=== PATIENT | female | born 1995 | race Caucasian/White ===

== ENCOUNTER 2022-10-29 12:44 | Outpatient (CLI) | payer BC, SELFPAY ==
--- NOTE | 2022-10-29 13:00 | CRLHL7_ITS ---
For Patients: As a result of the Century Cures Act, medical imaging exams and procedure reports are released immediately into your electronic medical record. You may view this report before your referring provider. If you have questions, please contact your health care provider. INDICATION: Evaluate size and dates TECHNIQUE: Ultrasound OB pelvis transvaginal. Real time dixon scale imaging of the pelvis was performed. COMPARISON: None FINDINGS: Sonographic imaging demonstrates a single living intrauterine gestation. The embryo demonstrates a regular cardiac rate measuring the 3 beats per minute. The embryo`s crown rump length measurement of 3.08 cm corresponds to a gestational age of 10 weeks 0 days with a sonographic due date of 05/27/2023 . There is a normal appearing yolk sac. There are no gross abnormalities noted within the embryo at this early state of development. The placenta has not yet developed. The gestational sac has a normal appearance. 3.1 centimeter x 0.5 centimeter x 0.4 centimeter left-sided subchorionic hemorrhage. The amount of fluid within the sac appears appropriate for gestational age. The cervix is closed. The myometrium appears normal. The ovaries are of normal size. There are no suspicious fluid collections noted in the cul-de-sac. IMPRESSION: Viable intrauterine . Gestational age calculated at 10 weeks 0 days with a sonographic due date of 05/27/2023. Measurements consistent with dates. 3.1 centimeter x 0.5 centimeter x 0.4 centimeter left-sided subchorionic hemorrhage. Dictated by Tong Crenshaw MD @ 10/29/2022 5:22:13 PM (Electronically Signed)
== END 2022-10-29 12:45 | disposition home or self-care (01) ==
LOC: US 12:47
PROVIDERS: Visit Provider Advanced Practice Midwife
DX: Z34.91 Encounter for supervision of normal pregnancy, unspecified, first trimester (principal); O20.9 Hemorrhage in early pregnancy, unspecified; Z3A.10 10 weeks gestation of pregnancy
CPT/HCPCS: 76817

== ENCOUNTER 2023-01-08 16:39 | Outpatient (CLI) | payer BC, SELFPAY ==
--- NOTE | 2023-01-08 17:00 | CRLHL7_ITS ---
For Patients: As a result of the Century Cures Act, medical imaging exams and procedure reports are released immediately into your electronic medical record. You may view this report before your referring provider. If you have questions, please contact your health care provider. INDICATION: Evaluate anatomy. COMPARISON: none TECHNIQUE: Real time dixon scale imaging of the fetus was performed as well as color Doppler analysis of the umbilical vessels. FINDINGS: Sonographic imaging demonstrates a single living intrauterine gestation. Fetus demonstrates a regular cardiac rate of 138 beats per minute. Fetus has a variable position. The placenta lies central without evidence of placenta previa. The edge of the placenta is located 2.6 cm from the internal cervical os. Amniotic fluid volume appears normal. Single deepest vertical pocket: 5.0 cm. The cervix is closed and measures 5.3 cm in length. The composite ultrasound gestational age is calculated at 20 weeks 3 days with an estimated sonographic due date of 05/25/2023. The estimated weight is 358 grams which lies at the 58th %. The following biometric measurements were obtained: Biparietal diameter: 4.6 cm/19 weeks 6 days 31st% Head circumference: 17.5 cm/20 weeks 0 days 29th% Abdominal circumference: 16.0 cm/21 weeks 1 day 72nd% Femur length: 3.2 cm/20 weeks 0 days 30th% The HC/AC ratio measures: 1.09 range (1.07-1.25) On anatomic survey, there is a normal appearance of the cerebral ventricles, cavum septi pellucidi, cisterna magna and cerebellum. The nose, lips, and facial profile appear normal. The cervical, thoracic and lumbar spine are well visualized and appear normal. There is a normal four-chamber heart view and the left and right ventricular outflow tracts appear normal. The diaphragm and stomach appear normal. The kidneys and bladder also appear normal. There is a normal three-vessel cord and cord insertion site. The four extremities appear normal. IMPRESSION: Normal OB ultrasound exam with concordance of clinical and sonographic dating. No intrinsic abnormalities noted on anatomic survey. Dictated by Tong Harris MD @ 01/09/2023 12:42:14 PM (Electronically Signed)
== END 2023-01-08 16:40 | disposition home or self-care (01) ==
PROVIDERS: Visit Provider Advanced Practice Midwife
DX: Z34.92 Encounter for supervision of normal pregnancy, unspecified, second trimester (principal); Z3A.20 20 weeks gestation of pregnancy
CPT/HCPCS: 76805; 76817

== ENCOUNTER 2023-01-25 16:06 | Outpatient (CLI) | payer BC, SELFPAY ==
[2023-01-27 09:58] LABS: Rapid Plasma Reagin (RPR) Non Reactive (Non Reactive)
== END 2023-01-25 16:07 | disposition home or self-care (01) ==
LOC: NFLDREF 16:07
PROVIDERS: Visit Provider Physician Assistant
DX: Z34.90 Encounter for supervision of normal pregnancy, unspecified, unspecified trimester (principal)
CPT/HCPCS: 86592

== ENCOUNTER 2023-02-20 13:27 | Outpatient (CLI) | payer BC, SELFPAY | END 2023-02-20 13:28 | disposition home or self-care (01) | LOC: NFLDREF 13:28 | PROVIDERS: Visit Provider Obstetrics & Gynecology | DX: O26.893 Other specified pregnancy related conditions, third trimester (principal); Z3A.28 28 weeks gestation of pregnancy | CPT/HCPCS: 87086 ==

== ENCOUNTER 2023-03-08 09:15 | Outpatient (CLI) | payer BC, SELFPAY | END 2023-03-08 09:16 | disposition home or self-care (01) | LOC: NFLDREF 03-10 05:04 | PROVIDERS: Visit Provider Obstetrics & Gynecology | DX: Z34.92 Encounter for supervision of normal pregnancy, unspecified, second trimester (principal); Z3A.26 26 weeks gestation of pregnancy | CPT/HCPCS: 86592 ==

== ENCOUNTER 2023-03-12 07:59 | Outpatient (CLI) | payer BC, SELFPAY | END 2023-03-12 08:00 | disposition home or self-care (01) | LOC: NFLDREF 21:16 | PROVIDERS: Visit Provider Obstetrics & Gynecology | DX: O24.419 Gestational diabetes mellitus in pregnancy, unspecified control (principal); Z3A.29 29 weeks gestation of pregnancy | CPT/HCPCS: 82951; 82952 ==

== ENCOUNTER 2023-04-02 12:01 | Outpatient (CLI) | payer BC, SELFPAY ==
--- NOTE | 2023-04-02 12:15 | CRLHL7_ITS ---
For Patients: As a result of the Century Cures Act, medical imaging exams and procedure reports are released immediately into your electronic medical record. You may view this report before your referring provider. If you have questions, please contact your health care provider. INDICATION: Third trimester scan, evaluate growth. Gestational diabetes. COMPARISON: 01/08/2023 TECHNIQUE: Real time dixon scale imaging of the fetus was performed. FINDINGS: Sonographic imaging demonstrates a single living intrauterine gestation. Fetus demonstrates a regular cardiac rate of 149 beats per minute. Fetus has a vertex position. The placenta lies posteriorly. Amniotic fluid volume appears normal and there is a single deepest vertical pocket: 5.6 cm. The estimated weight is 2152gm which lies at the 71st %. On the prior OB ultrasound exam dated 01/08/2023 the estimated weight was at the 58th%. BPD 76th percentile. HC 61st percentile. AC 87th percentile. FL 29th percentile. The HC/AC ratio measures 1.03 range (0.96-1.11). IMPRESSION: Sonographic gestational age 33 weeks 2 days and sonographic due date 05/19/2023. Sonographic age 1 week ahead of the clinical age. Estimated weight 71st percentile. Abdominal circumference 87th percentile. Dictated by Tong Harris MD @ 04/02/2023 12:39:19 PM (Electronically Signed)
== END 2023-04-02 12:02 | disposition home or self-care (01) ==
LOC: US 12:02
PROVIDERS: Visit Provider Obstetrics & Gynecology
DX: O24.419 Gestational diabetes mellitus in pregnancy, unspecified control (principal); Z3A.33 33 weeks gestation of pregnancy
CPT/HCPCS: 76816

== ENCOUNTER 2023-05-20 13:52 | Outpatient (CLI) | payer BC, SELFPAY ==
[2023-05-20 14:10] VITALS: BP 124/69; PULSE 92; PULSE 93; O2SAT 97
[2023-05-20] MEDS: ONDANSETRON ODT 4 MG TAB PO (15:22)
[2023-05-20 15:57] LABS: Appearance Urine Clear (Clear); Bilirubin Urine Negative (Negative); Blood Urine Negative (Negative); Color Urine Yellow (Yellow); Glucose Urine Negative (Negative); Ketones Urine Negative (Negative); Leukocyte Esterase Urine Negative (Negative); Nitrite Urine Negative (Negative); Protein Urine Negative (Negative); Urobilinogen Urine 0.2 (0.2-1.0)
[2023-05-20 15:58] LABS: Yeast Yeast Seen (None Seen)
[2023-05-20 15:59] LABS: Clue Cells No Clue Cells Seen (None Seen); Trichomonas No Trichomonas Seen (None Seen)
[2023-05-20] MEDS: ACETAMINOPHEN 500 MG TABLET 1000 MG PO (16:00)
--- NOTE | 2023-05-20 17:31 | PC.OBNST ---
NST Note NST Note Start: 05/20/23 14:07 Freq: ONCE Status: Active Protocol: Document 05/20/23 17:25 SD (Rec: 05/20/23 17:31 SD [id number]) NST Note 2 Para (# of births) 1 EDC 05/26/23 Gestational Age In Weeks & Days 39 Weeks & 1 Days High Risk Factors Diabetes - Gestational Diet Controlled Patient Presented with Complaint(s) of Contractions/cramping,Nausea and vomiting,Headache Other Complaints Contractions every 7 to 12 minutes, Persistent headache started 0600 05/19. Current c/o nausea, Nausea and vomiting yesterday, and perineal itching. Reactive Yes Appropriate for Gestational Age Yes TRISTA Sandoval RN Date 05/20/23 Reactive Yes Appropriate for Gestational Age Yes TRISTA Weston RN Date 05/20/23 OB NST charge Yes Complete NST Note via Write Note Yes The provider's electronic signature indicates the NST is reactive/appropriate for gestational age. *Note to provider: If an addendum is required, open the patient's chart and click on the note under the Nurse/Allied Health tab.
== END 2023-05-20 16:45 | disposition home or self-care (01) ==
LOC: OB OUT 13:53 → OB 13:53
PROVIDERS: Visit Provider Obstetrics & Gynecology
DX: O47.1 False labor at or after 37 completed weeks of gestation (principal); Z3A.39 39 weeks gestation of pregnancy
CPT/HCPCS: 59025; 81003; 87210; 99213; A9270

== ENCOUNTER 2023-07-02 07:47 | Outpatient (CLI) | payer BC, SELFPAY | END 2023-07-02 07:48 | disposition home or self-care (01) | LOC: NFLDREF 07-04 10:27 | PROVIDERS: Visit Provider Obstetrics & Gynecology | DX: Z39.2 Encounter for routine postpartum follow-up (principal) | CPT/HCPCS: 82947; 82950 ==

== ENCOUNTER 2024-04-29 17:16 | Emergency (ER) | payer BC, SELFPAY ==
[2024-04-29] VITALS (16 sets, daily range): BP systolic 104–130; BP diastolic 66–107; PULSE 74–98; RESP 16; TEMP 36.6; O2SAT 95–100; BMI 25.9
--- NOTE | 2024-04-29 17:29 | ED.GENADULT ---
HPI - General Adult General Date Seen: 04/29/24 Chief complaint: Chest Pain Stated complaint: Chest pain, short of breath Time Seen by Provider: 04/29/24 17:21 History of Present Illness HPI narrative: 28-year-old female with a history of cholecystectomy ( about 1 year ago at [facility]), gestational diabetes, , possibly GERD ( had been diagnosed with reflux prior to being diagnosed with gallstones. She thinks that she probably never really had GERD in the 1st place), contraception with Nexplanon, presenting to the ER today with concern that she might be having a heart attack. Symptoms began this afternoon she recalls that about a year ago after she had her most recent child she was having lot of upper abdominal pain. Ultimately diagnosed with gallstones and had an inpatient cholecystectomy done at the hospital in [place]. Since then all of her previous upper abdominal symptoms have resolved and she is no longer out any medications for GERD. She think she probably never had GERD in the 1st place. She does recall that about 2 months ago she had an episode of right upper quadrant pain, reminiscent of her gallstone pain. she went to the urgent care for that and was told it was probably reflux. She received a prescription for omeprazole, but did not take it. She has not had any pains since then. She has been healthy and well lately. No recent cough or fever or shortness of breath. No recent vomiting or diarrhea. No other illnesses. She was eating her normal diet today. She had 3 eggs and some cereal today. She was with her family and children this afternoon, playing with them in the house but not doing any unusual or strenuous activity. At about 315 or 320 she began to have symptoms of lightheadedness, presyncope, pain in right upper quadrant, Shortness of breath. her Apple watch alarm saying that her heart rate was elevated. She does not recall any palpitations. She gets very lightheaded had to sit down. She then had an episode of diarrhea that was so off but nonbloody. Since then all of her nausea and lightheadedness have resolved but she still has some residual pain in her right upper quadrant that is radiating through to the back. No fevers. No jaundice. No swelling in her legs. She does use Nexplanon. She has a regular periods and they happen about twice a month. She does not have any specific concern for but says she could not know for sure because her periods are so irregular. Related Data Home Medications ?Medication ?Instructions ?Recorded ?Confirmed etonogestrel 68 mg subdermal 1 implant subdermal ONCE 01/14/24 04/29/24 implant (Nexplanon) Allergies Allergy/AdvReac Type Severity Reaction Status Date / Time No Known Drug Allergies Allergy Verified 04/29/24 20:42 [facility] Medical History (Updated 04/29/24 @ 21:06 by Jose Alejandro MD) Gestational diabetes ?O24.419 - Gestational diabetes mellitus in , unspecified control (ICD-10) History of gestational diabetes ?Z86.32 - Personal history of gestational diabetes (ICD-10) History of anemia ?Z86.2 - Personal history of diseases of the blood and blood-forming organs and certain disorders involving the immune mechanism (ICD-10) Surgical History (Updated 07/29/23 @ 10:11 by Asael Clemente MD) History of cholecystectomy ?Z90.49 - Acquired absence of other specified parts of digestive tract (ICD-10) History of delivery ?Z98.891 - History of uterine scar from previous surgery (ICD-10) Family History (Updated 10/29/22 @ 14:27 by Janette Krishnan CNM) Father Diabetes Social History What is your current living situation?: I presently have a place to live Problems where you live: no known problems In the past 12 months, utilities in danger of being shut off: no In past 12 months, lack of transportation kept you from medical appts, meetings, work, or getting things needed for daily living: no In the past 12 mos, have been you worried that your food would run out before you had money to buy more?: never true In the past 12 mos, the food you bought just didn't last and you didn't have money to buy more?: never true Smoking Status: Never smoker Do you use any of these nicotine containing products: None Second hand tobacco smoke exposure: No How often do you have a drink containing alcohol: never AUDIT-C Alcohol total score: 0 Non-prescribed substance use: denies use How often does anyone, including family, friends and others, physically hurt you: unable to answer How often does anyone, including family, friends and others, insult or talk down to you: unable to answer How often does anyone, including family, friends and others, threaten you with harm: unable to answer How often does anyone, including family, friends and others, scream or curse at you: unable to answer Little interest or pleasure in doing things: not at all Feeling down, depressed, or hopeless: not at all service: No Exam Narrative: Exam Narrative: Constitutional: Appears well-developed and well-nourished. Alert. Conversant. Non toxic. HENT: Head: Atraumatic. Nose: Nose normal. Mouth/Throat: Oral mucosa is clear and moist. no trismus. Pharynx normal. Tonsils symmetric. No tonsillar enlargement, erythema, or exudate. Eyes: Conjunctivae normal. EOM normal. Pupils equal, round, and reactive to light. No scleral icterus. Neck: Normal range of motion. Neck supple. No tracheal deviation present. Cardiovascular: Normal rate, regular rhythm. No gallop. No friction rub. No murmur heard. Symmetric radial And DP artery pulses Pulmonary/Chest: Effort normal. No stridor. No respiratory distress. No wheezes. No rales. No rhonchi . No tenderness. Abdominal: Soft. Bowel sounds normal. No distension. No mass. mild right upper quad tenderness. no hepatosplenomegaly. No Barker sign.No rebound. No guarding. Endorses pain in her central upper back and right flank but is not tender there. Musculoskeletal: RUE: Normal range of motion. No tenderness. No deformity LUE: Normal range of motion. No tenderness. No deformity RLE: Normal range of motion. No edema. No tenderness. No deformity LLE: Normal range of motion. No edema. No tenderness. No deformity Neurological: Alert and oriented to person, place, and time. Normal strength. CN II-VII intact. No sensory deficit. GCS eye subscore is 4. GCS verbal subscore is 5. GCS motor subscore is 6. Normal coordination Skin: Skin is warm and dry. No rash noted. No pallor. Normal capillary refill. Psychiatric: Normal mood. Normal affect. Const: Vital Signs, click to edit/add: Vital Signs - 24 hr 04/29/24 17:30 04/29/24 17:54 04/29/24 18:00 Temperature 98 F Pulse Rate 80 85 Pulse Rate [Pulse Oximeter] 92 Respiratory Rate 16 Blood Pressure Blood Pressure [Ri ght Upper Arm] 117/70 Pulse Oximetry 100 96 98 Oxygen Delivery Me thod Room Air 04/29/24 18:01 04/29/24 18:30 04/29/24 18:32 Temperature Pulse Rate 98 85 84 Pulse Rate [Pulse Oximeter] Respiratory Rate Blood Pressure 104/82 111/66 Blood Pressure [Ri ght Upper Arm] Pulse Oximetry 99 96 97 Oxygen Delivery Me thod Course Vital Signs Vital signs: Initial Vital Signs Temperature 98 F 04/29/24 17:30 Temperature Source Temporal Artery Scan 04/29/24 17:30 Pulse Rate 92 04/29/24 17:30 Pulse Rhythm Regular 04/29/24 17:30 Pulse Strength 3+ Normal 04/29/24 17:30 Respiratory Rate 16 04/29/24 17:30 Blood Pressure 117/70 04/29/24 17:30 Blood Pressure Mean 85 04/29/24 17:30 Blood Pressure Position Semi-Fowlers 04/29/24 17:30 Pulse Oximetry 100 04/29/24 17:30 Oxygen Delivery Method Room Air 04/29/24 17:30 Vital Signs Temperature 98 F 04/29/24 17:30 Pulse Rate 92 04/29/24 17:30 Respiratory Rate 16 04/29/24 17:30 Blood Pressure 117/70 04/29/24 17:30 Pulse Oximetry 100 04/29/24 17:30 Oxygen Delivery Method Room Air 04/29/24 17:30 Temperature 98 F 04/29/24 17:30 Pulse Rate 84 04/29/24 18:32 Respiratory Rate 16 04/29/24 17:30 Blood Pressure 111/66 04/29/24 18:32 Pulse Oximetry 97 04/29/24 18:32 Oxygen Delivery Method Room Air 04/29/24 17:30 Medications Administered Medications: Discontinued Medications Generic Name Dose Route Start Last Admin Trade Name Freq PRN Reason Stop Dose Admin Aspirin 162 mg 04/29/24 17:53 04/29/24 18:05 Aspirin 81 Mg Tab.Chew PO 04/29/24 17:54 162 mg ONCE ONE Administration Medical Decision Making MDM Narrative Medical decision making narrative: This is a pleasant 28-year-old female with a history of previous laparoscopic cholecystectomy (done about a year ago at [facility]) presenting to the ER today with an episode of pain involving the right upper quadrant of her abdomen, associated with dizziness, presyncope, tachycardia, and shortness of breath. She also had 1 small loose bowel movement during this episode. No other diarrhea or vomiting. No fever or other infection symptoms. Differential is broad. With the shortness of breath and racing heart, consider possible cardiopulmonary cause. EKG here in the ER shows sinus rhythm and no arrhythmogenic abnormality. She has sinus rhythm. No ongoing tachycardia. She does have a smart watch which said her heart rate briefly went up to 158 beats per minute, but did not record a rhythm strip so I do not know she had an arrhythmia such as SVT, AFib with RVR, or if this was sinus tach driven by pain or adrenaline. Would recommend outpatient follow-up with Holter monitor as needed or return to the ER with recurrent palpitations. Consider possible PE causing shortness of breath and elevated heart rate. No hypoxia. No known risk factors for PE other than Nexplanon. No signs of DVT. No pleuritic chest pain, just right upper quadrant abdominal pain. Overall would be low risk for PE but not 0 risk. We did obtain D-dimer which is very low. At this point with normal D-dimer, low overall risk, the risk of radiation from CT PA would outweigh the benefit. Differential for right upper quadrant pain is broad. Consider possible hepatitis, pancreatitis. Labs are normal. Consider possible peptic ulcer disease or duodenal ulcer. Patient has no symptoms of recent GI bleeding. Stable vital signs. Normal hemoglobin. Consider possible retained common bile duct stone, versus other complication of cholecystectomy. CT scan abdomen pelvis shows no acute surgical or medical pathology. Bile ducts looked normal. Hepatic steatosis which would not be a cause for her pain. No evidence for pancreatitis. No signs of perforating ulcer. No evidence for obstruction. Consider possible early appendicitis, but labs are reassuring and CT shows No sign of appendicitis. Consider possible kidney stone. Urinalysis shows no hematuria. test negative. No lower abdominal pain to suggest gynecologic pathology. Exam shows no evidence for abdominal wall cellulitis, abdominal abscess, shingles. No known trauma. Passed p.o. challenge here in the ER. Pain resolved. She feels comfortable discharging home. Recommend close outpatient follow-up. Questions answered. Plan of care reviewed Lab Data Labs: Lab Results 04/29/24 04/29/24 Range/Units 17:29 18:07 WBC 11.44 H (4.50-11.00) K/uL RBC 4.57 (4.00-5.20) m/uL Hgb 13.1 (12.0-16.0) gm/dL Hct 38.6 (33.0-51.0) % MCV 85 (80-100) fL MCH 29 (26-34) pg MCHC 34 (32-36) gm/dL RDW Coeff of Joon 12.1 (11.5-15.5) % Plt Count 418 (140-440) K/uL Neut % (Auto) 48.1 (42.0-72.0) % Lymph % (Auto) 42.0 (20-44) % [place] % (Auto) 5.8 (0.0-11.0) % Eos % (Auto) 3.2 (0.0-7.0) % Baso % (Auto) 0.7 (0.0-3.0) % Neut # (Auto) 5.50 (1.7-7.0) K/uL Lymph # (Auto) 4.80 H (0.90-2.90) K/uL [place] # (Auto) 0.70 (0.00-0.90) K/UL Eos # (Auto) 0.40 (0.00-0.50) K/uL Baso # (Auto) 0.10 (0.00-0.30) K/uL Abs Immat Gran (auto) 0.00 (0.00-0.30) K/uL Imm/Tot Granulo (auto) 0.2 % D-Dimer Quant (PE/DVT) 0.07 (0.00-0.50) ug/ml Sodium 141 (135-149) mmol/L Potassium 3.8 (3.6-5.1) mmol/L Chloride 108 (96-114) mmol/L Carbon Dioxide 26 (20-32) mmol/L Anion Gap 7 (7-15) mEq/L BUN 13 (5-24) mg/dL Creatinine 0.6 (0.5-1.5) mg/dL Estimated Creat Clear 107.22 Estimated GFR 127 ml/min Glucose 97 (60-115) mg/dL Calcium 9.6 (8.4-10.6) mg/dL Total Bilirubin 0.5 (0.1-1.5) mg/dL AST 29 (12-35) U/L ALT 31 (4-35) U/L Alkaline Phosphatase 89 (40-150) U/L Troponin I < 0.01 L (0.01-0.04) ng/mL Total Protein 8.8 H (6.0-8.3) g/dL Albumin 5.1 H (3.3-5.0) g/dL Lipase 175 (23-300) U/L Urine Color Yellow (Yellow) Urine Appearance Clear (Clear) Urine pH 6.5 (5.0-8.5) Ur Specific [place] 1.010 (1.000-1.030) Urine Protein Negative (Negative) Urine Glucose (UA) Negative (Negative) Urine Ketones Negative (Negative) Urine Blood Negative (Negative) Urine Nitrite Negative (Negative) Urine Bilirubin Negative (Negative) Urine Urobilinogen 0.2 (0.2-1.0) Ur Leukocyte Esterase Negative (Negative) Urine RBC 0-2 (0-2) Urine WBC 0-2 (0-5) Ur Squamous Epith Cells Few (None-Few) Urine Bacteria None (None) Urine HCG, Qual Negative (Negative) Imaging Data CT scan - abdomen: Attestation: I have reviewed the pertinent imaging results. Radiologist's impression: FINDINGS: Lung bases: Normal. Liver: Mild diffuse hepatic steatosis. The liver is borderline enlarged and measures 19 centimeters in length. The liver surface is not nodular or cirrhotic. No focal masses. The portal veins and hepatic veins are patent. Gallbladder and bile ducts: Cholecystectomy. No bile duct dilation. Pancreas: Normal. Spleen: Normal. Adrenal glands: Normal. Kidneys: Normal parenchyma. No cyst or solid mass. No calculi. No urinary tract dilation. Urinary bladder: Normal. Pelvis: Physiologic appearance of the uterus and both ovaries. Vessels: Normal. Bowel: No dilated or inflamed bowel. The appendix is normal.. Moderate stool burden. Lymph nodes: No adenopathy. Peritoneum: No ascites. Abdominal wall: Tiny fat containing umbilical hernia. Bones: No fractures. No focal worrisome bone lesions. IMPRESSION: Mild diffuse hepatic steatosis and borderline hepatomegaly. ECG Data Attestation: I personally reviewed and interpreted this ECG as follows: Interpretation: Normal sinus rhythm with sinus arrhythmia Rate: 82 NJ: 140. No delta wave QRS axis: normal axis. No pathologic Q-waves. ST segment/T wave: No ST segment elevation or depression. Nonspecific anterior flattening in the T-waves. QTc: 420 Discharge Plan Discharge Clinical Impression: Right upper quadrant abdominal pain, Heart palpitations Patient Disposition: Home, Self-Care Condition: Stable Instructions: Heart Palpitations (DC), Acute Abdominal Pain (DC) Additional Instructions: As we discussed, please come back to the ER right away if you have any worsening symptoms are recurring abdominal pain, racing heart, fainting spells, dizziness, fever, or any concerns. Please [facility] with the [facility] as soon as possible for a recheck. You can call [phone] to arrange a primary care checkup and ER follow-up visit. Call tomorrow morning to arrange a checkup for soon as possible. Prescriptions: No Action Nexplanon 68 mg implant 1 implant subdermal ONCE Patient Comments: Placed on 01/14/24 Rx Instructions: as a single dose Follow Up/Referrals: Asael Clemente MD [Staff Physician] - Stand Alone Forms: [employer] Info Instructions
--- OUTSIDE RECORDS SUMMARY | 2024-04-29 18:03 | XMS_ITS | Encounter Summary ---
Author Organization [facility] Address [address] [place] [address] Care Team Providers Care Continuous Pillowcase Cutter Name Role Phone None Reported, Pcp Primary Care Provider Unavail able Reason for Visit * Reason Comments Finger Injury Encounter Details Date Type Department Care Team (Late st Contact Info) Description 04/09/2024 5:32 PM CDT - 04/09/2024 6:38 PM CDT Emergency [facility] [address] [place] [id number] Fracture Index Finger Other Phalanx Closed Initial Right (Primary Dx) Discharge Disposition: Home or Self Care Social History Tobacco Use Types Packs/Day Years Used Date Smoking Tobacco: Never Smokeless Tobacco: Never Alcohol Use Standard Drinks/Week Comments Not Currently 0 (1 standard drink = 0.6 oz pure alcohol) Ocasioanlly/ Social ; none with positive test Humiliation, Afraid, Rape, and Kick questionnair e Answer Date Recorded Within the last year, have y ou been afraid of your partner or ex-partner? No 10/08/2022 Within the last year, have y ou been humiliated or emotionally abused in other ways by your partner or ex-partner? No Within the last year, have y ou been kicked, hit, slapped, or otherwise physically hurt by your partner or ex-partner? No 10/08/2022 Within the last year, have y ou been raped or forced to have any kind of sexual activity by your partner or ex-partner? No 10/08/2022 Social Connection and Isolat ion Panel [NHANES] Answer Date Recorded In a typical week, how many times do you talk on the phone with family, friends, or neighbors? More than three times a week 10/08/2022 How often do you get togethe r with friends or relatives? Twice a week 10/08/2022 How often do you attend chur or christianity services? 1 to 4 times per year 10/08/2022 Do you belong to any clubs o r organizations such as samaritan groups, unions, fraternal or athletic groups, or school groups? No 10/08/2022 How often do you attend meet ings of the clubs or organizations you belong to? Never 10/08/2022 Are you , , di vorced, , never , or living with a partner? 10/08/2022 AUDIT-C Answer Date Recorded Q1: How often do you have a drink containing alc ohol? 2-4 times a month 10/08/2022 Q2: How many drinks containi ng alcohol do you have on a typical day when you are drinking? 1 or 2 10/08/2022 Q3: How often do you have si x or more drinks on one occasion? Never 10/08/2022 Overall Financial Resource Strain (CARDIA) Answe r Date Recorded How hard is it for you to pa y for the very basics like food, housing, medical care, and heating? Not very hard 10/08/2022 PHQ-2 Answer Date Recorded PHQ-2 Score 0 09/26/2022 [facility] Occupat ional Health - Occupational Stress Questionnaire Answer Date Recorded Do you feel stress - tense, restless, nervous, or anxious, or unable to sleep at night because your mind is troubled all the time - these days? Not at all 10/08/2022 Exercise Vital Sign Answer Date Recorde d On average, how many days pe r week do you engage in moderate to strenuous exercise (like a brisk walk)? 2 days 10/08/2022 On average, how many minutes do you engage in exercise at this level? 10 min 10/08/2022 Hunger Vital Sign Answer Date Recorded Within the past 12 months, y ou worried that your food would run out before you got the money to buy more. Never true 10/08/20 22 Within the past 12 months, t he food you bought just didn't last and you didn't have money to get more. Never true 10/08/2022 PRAPARE - Transportation Answer Date Re corded In the past 12 months, has l ack of transportation kept you from medical appointments or from getting medications? No 06/2022 In the past 12 months, has l ack of transportation kept you from meetings, work, or from getting things needed for daily living? No 10/08/2022 Housing Stability Vital Sign Answer Ignacio e Recorded In the last 12 months, was t here a time when you were not able to pay the mortgage or rent on time? No 10/08/2022 In the last 12 months, how many places have you lived? 1 10/08/2022 In the last 12 months, was t here a time when you did not have a steady place to sleep or slept in a snf (including now)? No 10/08/2022 Depression Answer Date Recor ded PHQ-9 Total Score (max 27) 3 03/23 Nutrition Answer Date Recorded Nutrition: EVOO Fat Source No 10/08 On average, how many serving s of fruits and vegetables do you eat per day (serving size is equal to 1 cup or approximately the size of a tennis ball)? 2-3 10/08/2022 Dental Answer Date Recorded Dental: Regular Dentist Yes 02/02/20 Employment Answer Date Recorded Employment status Employed and actively working without restrictions 10/08/2022 Education Answer Date Recorded What is the highest level of school you have completed or the highest degree you have received? Bachelor's degree (e.g., BA, AB, BS) 10/08/2022 Sex and Gender Information Value Date Recorded Sex Assigned at Female 10/13/2018 9:32 AM MEDICAL SURGICAL TECH Gender Identity Female 10/13/2018 9:32 AM MEDICAL SURGICAL TECH Sexual Orientation Straight 10/13/2018 9: 32 AM MEDICAL SURGICAL TECH documented as of this encounter Medications at Time of Discharge Medication Sig Dispensed Refills Start Date End Date acetaminophen (TYLENOL) 500 mg tablet Take 500-1,000 mg by mouth. 02/12/2022 ibuprofen (ADVIL,MOTRIN) 600 mg tablet Take 600 mg by mouth. 02/12/2022 oxyCODONE-acetaminophen (PERCOCET) 5-325 mg per tablet Take 1-2 tablets by mouth every 6 (six) hours as needed for pain. 07/23/2023 polyethylene glycol (MIRALAX) 17 gram/dose oral powder Take 17 g by mouth daily as needed. eaoxsic-Nv-squg-FA (VINATE ONE) 60 mg iron-1 mg per tablet Take 1 tablet by mouth daily. xymvmmz-Mm-fgcl-FA 27 mg iron- 1 mg tabletIndications:Pregnan cy Examination Test With Positive Result (HCC) Take 1 tablet by mouth daily. 90 tablet 3 10/11/2022 sennosides-docusate sodium (SENOKOT-S) 8.6-50 mg per tablet Take 1 tablet by mouth 2 (two) times a day. 07/23/2023 sertraline (ZOLOFT) 50 mg tablet Take 50 mg by mouth. 02/12/2022 documented as of this encounter Plan of Treatment Not on file documented as of this encounter Goals Goal Patient Goal Type Associated Problems Recent Progress Patient-Stated? Author [facility] Care Plan for Obstetrics COVID-19 Care Plan [facility] Care Plan for Obstetrics COVID-19 No Sarahi Barraza M.D. documented as of this encounter Procedures Procedure Name Priority Date/Time Associated Diagnosis Comments DX FINGERS RIGHT 2+ VIEWS RAD - Semiurgent (Fast; most ED patients; some inpatients) 04/09/2024 6:03 PM CDT documented in this encounter Results * DX Fingers Right 2+ Views (04/09/2024 6:03 PM CDT) Anatomical Region Laterality Modality Upper Extremity, Fingers, Mu sculoskeletal RST LOS, Musculoskeletal ARZ LOS, Muskuloskeletal FLA LOS Right Digit al Radiography Impressions 04/09/2024 6:24 PM CDT Acute mildly displaced index finger distal phalanx tuft fracture. No dislocation. No significant degenerative changes. Bandage overlies the mid and distal index finger. Narrative 04/09/2024 6:24 PM CDT EXAM: DX FINGERS RIGHT 2+ VIEWS Procedure Note Aislinn Garza M.D. - 04/09/2024 EXAM: DX FINGERS RIGHT 2+ VIEWS IMPRESSION: Acute mildly displaced index finger distal phalanx tuft fracture. Nodislocation. No significant degenerative changes. Bandage overlies the midand distal index finger. Zenon Joshi M.D. [facility] DIAGNOSTIC I MAGING PROCEDURES documented in this encounter Visit Diagnoses Diagnosis Fracture Index Finger Other Phalanx Closed Initial Right- Primary documented in this encounter Additional Health Concerns Active Problems Noted Date Diagnosed Date [facility] Care Plan for Obstetrics COVID-19 Assessment Noted Time PHQ-9 Depression Total Score: 3 03/23/20 22 1:56 PM CDT documented as of this encounter Care Teams Continuous Pillowcase Cutter Relationship Specialty Start Date End Date None Reported, Pcp PCP - General Family Medicine 01/30/24 documented as of this encounter
--- OUTSIDE RECORDS SUMMARY | 2024-04-29 18:03 | XMS_ITS | Clinical Summary ---
Author Organization [facility] Address [address] [place] [address] Care Team Providers Care Rice Drier Name Role Phone None Reported, Pcp Primary Care Provider Unavail able Source Comments Patient records contain information from all sites at [facility]. For routine questions regarding patient records, call [phone] during business hours, M-F 8:00 AM - 5:00 PM Central Time. Record requests for emergency care only can be directed to [phone] at any time.[facility] Allergies Active Allergy Reactions Criticality Noted Date Comments Bee Venom Protein (Honey Bee) Itching Medium 09/27/2021 Cat Dander Other (see comments) High 09/27/2021 Hives, itchy House Dust Other (see comments) 11/22/2021 Watery eyes, runny nose, itchy skin Pollen Extracts Other (see comments) High 09/27/2021 Watery eyes, stuffy nose, sneezing Tree And Shrub Pollen Other (see comments) High 09/02 Grass makes skin itch, watery eyes, stuffy nose, sneezing Medications Medication Sig Dispensed Refills Start Date End Date Status ysdzbbe-Cj-pbzd-FA (VINATE ONE) 60 mg iron-1 mg per tablet Take 1 tablet by mouth daily. Active polyethylene glycol (MIRALAX) 17 gram/dose oral powder Take 17 g by mouth daily as needed. Active acetaminophen (TYLENOL) 500 mg tablet Take 500-1,000 mg by mouth. 02/12/2022 Active ibuprofen (ADVIL,MOTRIN) 600 mg tablet Take 600 mg by mouth. 02/12/2022 Active sertraline (ZOLOFT) 50 mg tablet Take 50 mg by mouth. 02/12/2022 Active odrzjnj-Oh-yezw-FA 27 mg iron- 1 mg tabletIndications:Pre gnancy Examination Test With Positive Result (HCC) Take 1 tablet by mouth daily. 90 tablet 3 10/11/2022 Active oxyCODONE-acetaminoph en (PERCOCET) 5-325 mg per tablet Take 1-2 tablets by mouth every 6 (six) hours as needed for pain. 07/23/2023 Active sennosides-docusate sodium (SENOKOT-S) 8.6-50 mg per tablet Take 1 tablet by mouth 2 (two) times a day. 07/23/2023 Active Active Problems Patient Care Coordination No te Formatting of this note migh t be different from the original. 1st/2nd trimester education completed Pre-reg completed at [facility]. LMP: 08/19/22 EDC:05/26/2023 provider:Evita Allan FOB involved:, Loc Problem Noted Date Diagnosed Date History Of Uterine Scar From Previous Surgery Overview: Previous for failed induction of labor Leaning towards repeat scheduled , would consider TOLAC in the event that she spontaneous labor prior to her date Plans to have up to 4 children Examination Test With Positive Result 10/11/2022 Overview: She is considering transferring care to [place] given that she now works in [place] Will call regarding cell free DNA versus quad screen, quad screen in prior showed increased risk for trisomy 21, baby was normal History of GDM A1 in prior Her 2 hour GTT was normal A1c pending Recommending a diabetic diet in Diabetes Mellitus Gestational 11/23/20 21 Overview: Diagnosed on November 22 by a GCT of 200 Currently diet controlled Plan serial growth US COVID-19 Infection 08/31/2021 Overview: S/p Monoclonal antibody infusions Recommend 39wk IOL Depression Major Recurrent Mild 01/04/2021 Overview: Previously controlled on sertraline, no longer using this medication, states that mood is good Wart Plantar 12/13/2020 Overview: Right foot Resolved Problems Problem Noted Date Diagnosed Date Resolved Date High Risk 09/01/2021 03/27/20 22 Overview: Covid dx at 16 wks GA See consult from 09/01/21 Sarahi Stanley M.D. Examination Normal First Trimester 08/18/2021 03/27/2022 Overview: - She was recently seen for a infertility evaluation including HSG, which was normal, this is a spontaneous conception. - Reviewed precautions, nutrition, and weight gain - abnormal Quad screen, increased risk Down syndrome, patient declining referral to genetic counseling, declining amniocentesis - given abnormal quad and missing views, referred to [place] for level 2 ultrasound MFM: Level 2 scan demonstrated normal anatomy normal biometry and no soft markers of aneuploidy. We did discuss whether she wishes to pursue cell free DNA screening, however she did feel reassured by the normal scan and did not wish to go any further with testing. GERD: Protonix Breast feeding Declines contraception GBS+ Encounters Date Type Department Care Team Description 04/09/2024 5:32 PM CDT - 04/09/2024 6:38 PM CDT Emergency [facility] [address] [place] [phone] Fracture Index Finger Other Phalanx Closed Initial Right (Primary Dx) Discharge Disposition: Home or Self Care from Last 3 Months Immunizations Name Administration Dates Next Due 4vHPV (discontinued) 10/19/2010,02/16/2010,01/19 DTaP (Infanrix, [employer]edia) 05/13/2001,08/1997,1997,1996,1997,1997,1997 H1N1 All Forms 12/22/2009 H1N1 Inj 12/22/2009 HepA Pediatric/Adolescent 03/02/2002,03/25/2001 HepA, Pediatric Unspecified 03/02/2002, 1 HepA, Unspecified 12/05/2001,03/25/2001 HepB Pediatric/Adolescent 03/25/2001,10/19/2000, 09/18/2000 HepB, Unspecified 10/21/2008, 1,10/19/2000,1999 Hib, Unspecified 1997, 7,1997,1996 IPV 04/25/2002, 1,1997,1996,1997 Influenza TIV (IM) 08/20/2012,10/19/2010, 009 Influenza, Unspecified 11/04/2014,2011,10/19/2010,2008 MCV4 (Menactra)(Discontinued) 06/28/2015, 010 MMR 04/25/2002,05/05/1998 Td Preservative Free (TENIVA C, DECAVAC) 12/13/2020 Tdap 11/22/2021,10/21/2008 SOFY 10/21/2008,06/15/2004 influenza LAIV (Nasal) (2 ye ars through 49 years) 10/21/2008 influenza vaccine quad (FLUZONE/FLUARIX) (6 months and older)(PF) 09/21/2021,10/21/2008 Family History Medical History Relation Name Comments No Known Problems Brother Diabetes Father No Known Problems Mother No Known Problems Sister 2 sisters No Known Problems Son Relation Name Status Comments Brother Alive Father Alive Mother Alive Sister 2 sisters Alive Son Social History Tobacco Use Types Packs/Day Years Used Date Smoking Tobacco: Never Smokeless Tobacco: Never Tobacco Cessation:Counseling Given: Not Answered Alcohol Use Standard Drinks/Week Comments Not Currently [...] How often do you attend chur or adventist services? 1 to 4 times per year 10/08/2022 Do you belong to any clubs o r organizations such as caodaism groups, unions, fraternal or athletic groups, or [...] Answer Date Recorded PHQ-2 Score 0 09/26/2022 [facility] of Occupat ional Health - Occupational Stress [...] place to sleep or slept in a fpc (including now)? No 10/08/2022 Depression Answer Date [...] Sex Assigned at Female 10/13/2018 9:32 AM ATHLETIC MONITOR Gender Identity Female 10/13/2018 9:32 AM ATHLETIC MONITOR Sexual Orientation Straight 10/13/2018 9: 32 AM ATHLETIC MONITOR Last Filed Vital Signs Vital Sign Reading Time Taken Comments Blood Pressure 106/70 10/11/2022 2:46 PM ATHLETIC MONITOR Pulse 72 04/02/2022 3:40 PM CDT Temperature 36 ??C (96.8 ??F) 04/02/2022 3:40 PM CDT Respiratory Rate 16 04/02/2022 3:40 PM CDT Oxygen Saturation 98% 10/02/2021 9:00 AM CDT Inhaled Oxygen Concentration - - Weight 62.9 kg (138 lb 10.7 oz) 10/11/2022 2:46 PM ATHLETIC MONITOR Height 152 cm (4' 11.84) 10/11/2022 2:47 PM ATHLETIC MONITOR Body Mass Index 27.23 10/11/2022 2:46 PM ATHLETIC MONITOR Plan of Treatment Health Maintenance Due Date Last Done Comments Pneumococcal vaccine (0-64 y ears) (1 of 2 - PCV) 2003 Depression Monitoring (PHQ-9) 07/23/2022 03/23/2022 COVID-19 Vaccine (1 - 2022-2 4 season) 2023 Influenza Vaccine (#1) 2023 , 01/04/2021, 11/04/2014, Additional history exists Glucose Monitoring for Gestational Diabetes (6 weeks ) 09/29/2023 04/13/2022 Cervical Cancer Screening 12/13/2023 12/13/2020 DTaP,Tdap,and Td Vaccines (9 - Td or Tdap) 04/02/2033 04/02/2023, 11/22/2021, 12/13/2020, Additional history exists Hepatitis B Vaccines Completed 10/21/2008, 03/25/2001, 03/25/2001, Additional history exists HPV Vaccines Completed 10/19/2010, 10/02, 02/16/2010, Additional history exists Chlamydia and Gonorrhea Screening Discontinued 10/11/2022, 04/02/2022, 05/18/2021, Additional history exists HIV Screening Completed 10/11/2022, 07/17/2021 Hepatitis C Screening Completed 10/11/2022, 021 Goals Goal Patient Goal Type Associated Problems Recent Progress Patient-Stated? Author [facility] Care Plan for Obstetrics COVID-19 Care Plan [facility] Care Plan for Obstetrics COVID-19 Sarahi James M.D. Procedures Procedure Name Priority Date/Time Associated Diagnosis Comments DX FINGERS RIGHT 2+ VIEWS RAD - Semiurgent (Fast; most ED patients; some inpatients) 04/09/2024 6:03 PM CDT HCV AB SCRN W/REFLEX TO HCV PCR, S Routine 10/11/2022 3:45 PM ATHLETIC MONITOR Examination Test With Positive Result (HCC) HIV-1/-2 AG AND AB SCRN, PLASMA Routine 10/11/2022 3:45 PM ATHLETIC MONITOR Examination Test With Positive Result (HCC) CHLAMYDIA/GONORRH OEAE AMPLIFIED RNA Routine 10/11/2022 3:25 PM ATHLETIC MONITOR Examination Test With Positive Result (HCC) 2 HR GLUCOSE CASS Routine 04/13/2022 8:43 AM CDT Diabetes Mellitus Gestational (HCC) THINPREP SCREEN HPV REFLEX Routine 12/13/2020 4:34 PM ATHLETIC MONITOR Pap Smear Examination from Last 3 Months or Most Recently Relevant to Health Maintenance Results * DX Fingers Right 2+ Views [...] midand distal index finger. Zenon Joshi M.D. IMG DIAGNOSTIC I MAGING PROCEDURES * HIV-1/-2 Ag and Ab Scrn, Plasma (10/11/2022 3:45 PM ATHLETIC MONITOR) Pathologist [facility] HIV-1/-2 Ag and Ab Scrn, P Negative Negative 10/12/2022 9:59 AM ATHLETIC MONITOR [facility] Comment: Negative result does not rule out HIV infection. If exposure to HIV infection occurred <14 days ago, contact the laboratory to request addition of HIV-1 RNA detection / quantification test (HIVQN). Blood (Blood, Venous) 10/11/2022 3:45 PM ATHLETIC MONITOR 10/12/2022 7:12 AM ATHLETIC MONITOR Alok Fischer M.D. LAB MICROBIOLOGY - B LOOD ORDERABLES Performing Organization Address City/[facility]/ZIP Co de Phone Number [facility] [address] [place] [address] [place] [address] * HCV Ab Scrn w/Reflex to HCV PCR, Serum (10/11/2022 3:45 PM ATHLETIC MONITOR) [facility] HCV Ab Screen, S Negative Negative 10/12/2022 8:12 AM ATHLETIC MONITOR [facility] Comment:Rpudve-xl-qrrcvk rat io is <1.00. Blood (Blood, Venous) 10/11/2022 3:45 PM ATHLETIC MONITOR 10/12/2022 7:12 AM ATHLETIC MONITOR Alok Fischer M.D. LAB MICROBIOLOGY - B LOOD ORDERABLES Performing Organization Address City/[facility]/ZIP Co de Phone Number [facility] [address] [place] [address] [place] [address] * Chlamydia / Gonorrhoeae Amplified RNA (10/11/2022 3:25 PM ATHLETIC MONITOR) [facility] Source Swab, Vagina 10/12/2022 12:54 AM ATHLETIC MONITOR [facility] Chlamydia trachomatis amplified RNA Negative Negative 10/12/2022 12:54 AM ATHLETIC MONITOR [facility] Source Swab, Vagina 10/12/2022 12:54 AM ATHLETIC MONITOR [facility] Neisseria gonorrhoeae amplified RNA Negative Negative 10/12/2022 12:54 AM ATHLETIC MONITOR [facility] Swab (Vagina) 10/11/2022 3:2 5 PM ATHLETIC MONITOR 10/11/2022 7:14 PM ATHLETIC MONITOR Alok Fischer M.D. LAB MICROBIOLOGY - G ENERAL ORDERABLES [facility] [place] [address], [facility] [place] [address] [place] [address] * Glucose Tolerance, Two Hour, Non-Gestational (04/13/2022 8:43 AM CDT) Glucose Cass, Fast, Non-Gest, P 92 70 - 100 mg/dL 04/13/2022 10:54 AM CDT [facility] Glucose Cass, 2hr, Non-Gest, P 90 <200 mg/dL 04/13/2022 1:39 PM CDT [facility] Blood (Blood, Venous) 04/13/2022 8:43 AM CDT 04/13/2022 10:32 AM CDT Narrative [facility] - 04/13/2022 1:39 PM CDT Specimen Information: Specimen ID: [id number] Specimen Type: Blood Specimen Collection Start Date: 04/13/2022 ??8:43 AM Specimen Received Date: 04/13/2022 10:32 AM Specimen ID: [id number] Specimen Type: Blood Specimen Collection Start Date: 04/13/2022 10:48 AM Specimen Received Date: 04/13/2022 12:57 PM Alok Fischer M.D. LAB BLOOD NON ADD-ON [facility] [address] [place] [address], [place] [facility] [place] [address] [place] [address] * ThinPrep Screen HPV Reflex (12/13/2020 4:34 PM ATHLETIC MONITOR) 12/22/2020 1:52 PM ATHLETIC MONITOR [facility] Report electronically signed by Nicolette Floyd MD I verify that I have examined all relevant slides/materials for the specimen(s) and rendered or confirmed the diagnosis. 12/22/2020 1:52 PM ATHLETIC MONITOR [facility] Gross Description Received specimen in a ThinPrep vial. 12/22/2020 1:52 PM ATHLETIC MONITOR [facility] Pap Test Source Cervical/Endocervi berta 12/22/2020 1:52 PM ATHLETIC MONITOR [facility] Clinical History well woman 12/22/19 1:52 PM ATHLETIC MONITOR [facility] Menstrual Status(LMP, PM, ) LMP Nov 25, 2019 12/22/2020 1:52 PM ATHLETIC MONITOR [facility] Hormone Therapy/Contracep tives None/Not known 12/22/2020 1:52 PM ATHLETIC MONITOR [facility] Interpretation Cervical/Endocervi berta ??(ThinPrep): Satisfactory for Evaluation Negative for Intraepithelial Lesion or Malignancy Reactive cellular changes associated with: ? Reparative or inflammatory changes 12/22/2020 1:52 PM ATHLETIC MONITOR [facility] Varies (Cervix/Endocerv ix) 12/13/2020 4:34 PM ATHLETIC MONITOR 12/14/2020 7:11 AM ATHLETIC MONITOR Hiwot Shepard APRN C.N.P., R.N. LAB PA P PATHDX ORDERABLES [facility] [address] [place] [address], [facility] [address] [place] [address] from Last 3 Months or Most Recently Relevant to Health Maintenance Additional Health Concerns Active Problems Noted Date Diagnosed Date [facility] Care Plan for Obstetrics COVID-19 10 /12/2020 Care Teams Rice Drier Relationship Specialty Start Date End Date None Reported, Pcp PCP - General Family Medicine 01/30/24
--- OUTSIDE RECORDS SUMMARY | 2024-04-29 18:03 | XMS_ITS ---
Author Organization [facility] Address [address] [place] [address] Care Team Providers Care Maintenance Custodian Name Role Phone Unavailable Unavailable Unavailable Surgery Details Not on file Complications Check Surgery Details section. Procedure Estimated Blood Loss Check Surgery Details section. Procedure Findings Check Surgery Details section. Procedure Specimens Taken Check Surgery Details section.
--- OUTSIDE RECORDS SUMMARY | 2024-04-29 18:03 | XMS_ITS | Clinical Summary ---
Author Organization [facility] Address [place], [place] [address] Care Team Providers Care Client Support Representative Name Role Phone Pcp, No Primary Care Provider Unavailabl e Allergies Active Allergy Reactions Criticality Noted Date Comments Bee Venom Protein (Honey Bee) Itching Medium 09/27/2021 Cat Dander Other - Describe In Comment Field High 09/27/2021 Hives, itchy House Dust Other - Describe In Comment Field 11/22/2021 Watery eyes, runny nose, itchy skin Pollen Extracts Other - Describe In Comment Field High 09/27/2021 Watery eyes, stuffy nose, sneezing Tree And Shrub Pollen Other - Describe I n Comment Field High 09/27/2021 Grass makes skin itch, watery eyes, stuffy nose, sneezing Medications Medication Sig Dispensed Refills Start Date End Date Status Breast Pump PurchaseIndication s:S/P section Electric breast pump for home use. Gestational age at delivery: 39 weeks. Reason for need: . Length of need: 99 months (lifetime use) 1 Each 05/26/2023 Active elderberry fruit (ELDERBERRY ORAL) Take 3 Each by mouth every morning. gummies Active oxyCODONE-acetamin ophen (PERCOCET) 5-325 mg per tabletIndications: Gallstones Take 1 to 2 Tablets by mouth every 6 hours if needed for Pain. Max acetaminophen dose: 4000mg in 24 hrs. 15 Tablet 07/23/2023 Active ibuprofen (ADVIL; MOTRIN) 600 mg tabletIndications: Gallstones Take 1 Tablet (600 mg) by mouth every 6 hours if needed for Pain. Maximum of 3200 mg in 24 hours. 30 Tablet 07/23/2023 Active sennosides-docusat e (SENOKOT S) (8.6-50 mg) tabletIndications: Gallstones Take 1 Tablet by mouth two times daily. 20 Tablet 07/23/2023 Active Active Problems Problem Noted Date Diagnosed Date Acute cholecystitis 07/23/2023 Lactating mother 07/23/2023 History of gestational diabetes 07/23/2023 S/P laparoscopic cholecystectomy 07/23/2023 delivery delivered 05/23/2023 History of uterine scar from previous surgery Overview: Previous for failed induction of labor Leaning towards repeat scheduled , would consider TOLAC in the event that she spontaneous labor prior to her date Plans to have up to 4 children Resolved Problems Problem Noted Date Diagnosed Date Resolved Date Gestational diabetes mellitus (GDM) 11/23/2021 05/24/2023 Overview: Diagnosed on November 22 by a GCT of 200 Currently diet controlled Plan serial growth US Disease due to severe acute respiratory syndrome coronavirus 2 (SARS-CoV-2) 08/31/202105/03 Overview: S/p Monoclonal antibody infusions Recommend 39wk IOL 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 01/04/2021 05/24/2023 Underweight 08/20/2012 05/24/2023 Overview: see workup upper gastrointestinal barium swallow negative Environmental allergies 08/20/201205/03 Anemia, unspecified 05/24/20 Overview: Anemia Encounters Date Type Department Care Team Description 04/09/2024 5:34 PM CDT - 04/09/2024 6:38 PM CDT Emergency [facility] [address] [place] [address] Zenon Joshi MD Closed fracture of tuft of distal phalanx of right index finger (Primary Dx) Discharge Disposition: Home Self Care 04/09/2024 Travel 02/04/2024 12:40 PM FACTORY MAINTENANCE MANAGER Office Visit [facility] [address] [place] [address] Ebenezer Frances, KIMBERLI Chest Injury (C/o having sternum pain on and off . Feels like it did when she had gull stones last July. ); Abdominal Pain (C/O having left upper quadrant pain fells like it did when she had gull stones last July. ); Throat Problem (C/O having a sore throat onset last night. ); Influenza Like Illness (C/O having chills body aches,headaches. Onset yesterday. ) 02/04/2024 Travel from Last 3 Months Immunizations Name Administration Dates Next Due DTaP 05/13/2001, 7,1997,07/07 HIB PRP-T (ActHIB,Hiberix) 1997,1997 ,1997 Hepatitis A (Peds) 03/02/2002,03/25/2001 Hepatitis B (Peds) 03/25/2001,10/19/2000, 000 Human Papilloma Virus Vaccine 10/19/2010, 010,01/19/2010 Inactivated Polio Vaccine 04/25/2002,,1997,09/06,1997 Influenza A (H1N1), Inactiva roula (Age >=3 Years) 12/22/2009 Influenza, IIV3 (Age >=3 years) 08/20/2012,10/19,09/15/2009 Influenza,LAIV4 Live Intrana edu (Flumist) 10/21/2008 MMR 04/25/2002,05/05/1998 Meningococcal Vaccine (Menactra) 01/19/2010 Tdap 10/21/2008 Varicella Vaccine 10/21/2008,06/15/2004 Family History Medical History Relation Name Comments Diabetes Father Diabetes Paternal Grandmother Hypertension Paternal Grandmother Relation Name Status Comments Father Paternal Grandmother Social History Tobacco Use Types Packs/Day Years Used Date Smoking Tobacco: Never Smokeless Tobacco: Never Alcohol Use Standard Drinks/Week Comments Yes 0 (1 standard drink = 0.6 oz pur e alcohol) Social Social Connections Answer Date Recorded Frequency of Communication with Friends and Fami ly 0 07/23/2023 Financial Resource Strain Answer Date R ecorded Difficulty of Paying Living Expenses 3 07/23/2023 Difficulty of Paying Living Expenses Not on file 07/23/2023 Food Insecurity Answer Date Recorded Worried About Running Out of Food in the Last Ye ar 1 07/23/2023 Transportation Needs Answer Date Record ed Lack of Transportation (Medical) 1 07/23/2023 Housing Stability Answer Date Recorded Unable to Pay for Housing in the Last Year 1 07/23/2023 Sex and Gender Information Value Date Recorded Sex Assigned at Not on file Gender Identity Not on file Sexual Orientation Not on file Obstetrics History Para Term AB IAB SAB Ectopic Multiple Livin g Live Births 2 2 2 0 2 2 Date Outcome GA Total Labor Labor/2nd/3rd Weight Sex Delivery Anes PTL Suzanne A1 A5 Name Cl in 02/09 Term 39w 1d 0h 02m 0h 02m 3.49 kg (7 lb 11 oz) M Spina l,Epi dural Alejandra ng 8 9 [facility] Luis Sanderson MD Complications:Dysfunctional Labor,Failure to Progress in First Stage,Gestational diabetes mellitus Delivery Location:Hospital ( [facility] 05/23 Term 39w 4d 0h 03m 0h 03m 4.13 kg (9 lb 1.7 oz) F Alejandra ng 9 9 [facility] Samuel Feliz MD Delivery Location:Hospital ( [facility]) Last Filed Vital Signs Vital Sign Reading Time Taken Comments Blood Pressure 106/57 04/09/2024 5:42 PM CDT Pulse 86 04/09/2024 5:42 PM CDT Temperature 37 ??C (98.6 ??F) 04/09/2024 5:42 PM CDT Respiratory Rate 18 04/09/2024 5:42 PM CDT Oxygen Saturation 98% 04/09/2024 5:42 PM CDT Inhaled Oxygen Concentration - - Weight 61.7 kg (136 lb) 04/09/2024 5:42 PM CDT Height 154.9 cm (5' 1) 04/09/2024 5:42 PM CDT Body Mass Index 25.7 04/09/2024 5:42 PM CDT Plan of Treatment Health Maintenance Due Date Last Done Comments Depression screening for age 12+ 2009 BMI (ht and wt on same day) for age 18+ 2015 Hepatitis C screening for age 18-79 2015 Pap test for age 21-65 2018 Tetanus booster 10/21/2018 10/21/2008 COVID-19 vaccine series (2022- season) 2023 Influenza for age 9-49 08/02/2024 2, 10/19/2010, 12/22/2009, Additional history exists Tdap Completed 10/21/2008 HPV series for age 9-26 Completed 10/19/20 10, 02/16/2010, 01/19/2010 HIV for age 15-65 Completed 10/11/2022 Pneumococcal series for age 6-64 Aged Out No longer eligible based on patient's age to complete this topic Procedures Procedure Name Priority Date/Time Associated Diagnosis Comments XR FINGER 3 VIEWS RIGHT STAT 04/09/2024 6:02 PM CDT STREP A PCR STAT 02/04/2024 1:37 PM FACTORY MAINTENANCE MANAGER Sore throat INFLUENZA A/B PCR Routine 02/04/2024 1:3 7 PM FACTORY MAINTENANCE MANAGER Sore throat COVID-19 MOLECULAR Routine 02/04/2024 1: 37 PM FACTORY MAINTENANCE MANAGER Sore throat THROAT RAPID STREP A WITH REFLEX STAT 02/04/2024 1:37 PM FACTORY MAINTENANCE MANAGER Sore throat HIV EXTERNAL Routine 10/11/2022 from Last 3 Months or Most Recently Relevant to Health Maintenance Results * XR FINGER 3 VIEWS RIGHT (04/09/2024 6:02 PM CDT) Anatomical Region Laterality Modality Finger Digital Radiogra phy Dave Ahmadi RN GENERAL IMAGING * COVID-19 MOLECULAR (02/04/2024 1:37 PM FACTORY MAINTENANCE MANAGER) COVID 19 [facility] MOLECULAR Negative Negative 02/05/2024 12:31 AM FACTORY MAINTENANCE MANAGER [facility]- [facility]ORATORY TESTING LABORATORY [facility] 02/05/2024 12:31 AM FACTORY MAINTENANCE MANAGER [facility] Comment:Specimen submitted t o [facility] for testing. Other SPECIMEN FROM NASAL FOSSAE / Unknown Non-Blood / Unknown 02/04/2024 1:37 PM FACTORY MAINTENANCE MANAGER 02/04/2024 1:37 PM FACTORY MAINTENANCE MANAGER Narrative [facility] - 02/05/2024 12:31 AM FACTORY MAINTENANCE MANAGER All PCR tests are subject to false negative result due to variability in viral load and collection technique. A negative result does not rule out a SARS-CoV-2 infection. Clinical correlation required. This test has been authorized by FDA under an Emergency Use Authorization (EUA). This test is only authorized for the duration of time the declaration that circumstances exist justifying the authorization of the emergency use of in vitro diagnostic tests for detection of SARS-CoV-2 virus and/or diagnosis of COVID-19 infection under section 564(b)(1) of the Act, 21 U.S.C. 360bbb-3(b) (1), unless the authorization is terminated or revoked sooner. Rose Camarena NP MICROBIOLOGY Performing Organization Address City/[facility]/ZIP Co de Phone Number [facility] [address] * STREP A PCR (02/04/2024 1:37 PM FACTORY MAINTENANCE MANAGER) GROUP A STREP Negative 02/05/2024 5:14 AM FACTORY MAINTENANCE MANAGER [facility] TRAL LABORATORY Throat SPECIMEN FROM THROAT / Unknown Non-Blood / Unknown 02/04/2024 1:37 PM FACTORY MAINTENANCE MANAGER 02/04/2024 1:51 PM FACTORY MAINTENANCE MANAGER Rose Camarena NP MICROBIOLOGY [facility] [address] [place] [address], * (ABNORMAL) INFLUENZA A/B PCR (02/04/2024 1:37 PM FACTORY MAINTENANCE MANAGER) INFLUENZA A PCR Negative 02/05/2024 12:31 AM FACTORY MAINTENANCE MANAGER [facility] TRAL LABORATORY INFLUENZA B PCR Positive(A) 02/05/2024 12:31 AM FACTORY MAINTENANCE MANAGER [facility] TR[facility] Other SPECIMEN FROM NASAL FOSSAE / Unknown Non-Blood / Unknown 02/04/2024 1:37 PM FACTORY MAINTENANCE MANAGER 02/04/2024 1:37 PM FACTORY MAINTENANCE MANAGER Rose Camarena NP MICROBIOLOGY [facility] [address], [place] [address], * THROAT RAPID STREP A WITH REFLEX (02/04/2024 1:37 PM FACTORY MAINTENANCE MANAGER) STREP A ANTIGEN Negative 02/04/2024 1:51 PM FACTORY MAINTENANCE MANAGER [facility] Comment:PCR to follow. Throat SPECIMEN FROM THROAT / Unknown Non-Blood / Unknown 02/04/2024 1:37 PM FACTORY MAINTENANCE MANAGER 02/04/2024 1:37 PM FACTORY MAINTENANCE MANAGER Rose Camarena NP MICROBIOLOGY [facility] [address] [place] [address] * HIV EXTERNAL (10/11/2022) EXTERNAL HIV Negative [facility] Blood BLOOD SPECIMEN / Unknown Evita Allan NP LABORATORY [facility] [address] [place] [address], from Last 3 Months or Most Recently Relevant to Health Maintenance Advance Directives * Full Code (Latest Code Status on File) Date Activated Date Inactivated Comments 07/23/2023 5:32 AM 07/24/2023 12:51 AM Question Answer Comments Code Status Discussion: Reviewed Preferences * Full Code Date Activated Date Inactivated Comments 05/23/2023 8:23 AM 05/26/2023 3:08 PM Question Answer Comments Code Status Discussion: Reviewed Preferences * Full Code Date Activated Date Inactivated Comments 02/10/2022 1:46 PM 02/12/2022 1:30 PM Question Answer Comments Code Status Discussion: Other * Full Code Date Activated Date Inactivated Comments 02/08/2022 7:25 AM 02/10/2022 12:39 AM Question Answer Comments Code Status Discussion: Reviewed Preferences Care Teams Client Support Representative Relationship Specialty Start Date End Date Pcp, No . PCP - General 05/06/23
--- OUTSIDE RECORDS SUMMARY | 2024-04-29 18:03 | XMS_ITS | Referral Summary ---
Author Organization [facility] Address [address] [place] [address] Care Team Providers Care Supervisor [employer] Name Role Phone None Reported, Pcp Primary Care Provider Unavail able Source Comments Patient records contain information from all sites at [facility]. For routine questions regarding patient records, call [phone] during business hours, M-F 8:00 AM - 5:00 PM Central Time. Record requests for emergency care only can be directed to [phone] at any time.[facility] Encounters Date Type Department Care Team Description 04/09/2024 5:32 PM CDT - 04/09/2024 6:38 PM CDT Emergency [facility] [address] [place] [address] Fracture Index Finger Other Phalanx Closed Initial Right (Primary Dx) Discharge Disposition: Home or Self Care from Last 3 Months Allergies Active Allergy Reactions Criticality Noted Date [...] Dispensed Refills Start Date End Date Status ozwgris-Qi-vpde-FA (VINATE ONE) 60 mg iron-1 mg per [...] Take 50 mg by mouth. 02/12/2022 Active pesqftg-Fp-mbxi-FA 27 mg iron- 1 mg tabletIndications:Pre gnancy [...] 1st/2nd trimester education completed Pre-reg completed at [facility]. LMP: 08/19/22 EDC:05/26/2023 [place] provider:Evita Allan FOB involved:, Loc Problem Noted Date Diagnosed Date History Of Uterine Scar From Previous Surgery Overview: Previous for failed induction of labor Leaning towards repeat scheduled , would consider TOLAC in the event that she spontaneous labor prior to her date Plans to have up to 4 children Examination Test With Positive Result 10/11/2022 Overview: She is considering transferring care to [place] given that she now works in [place] Will call regarding cell free DNA versus [...] Date Resolved Date High Risk 09/01/2021 03/27/20 Overview: Covid dx at 16 wks GA [...] abnormal quad and missing views, referred to [facility] for level 2 ultrasound MFM: Level 2 scan demonstrated normal anatomy normal biometry and no soft markers of aneuploidy. We did discuss whether she wishes to pursue cell free DNA screening, however she did feel reassured by the normal scan and did not wish to go any further with testing. GERD: Protonix Breast feeding Declines contraception GBS+ Immunizations Name Administration Dates Next Due 4vHPV [...] quad (FLUZONE/FLUARIX) (6 months and older)(PF) 09/21/2021,10/21/2008 Social History Tobacco Use Types Packs/Day Years [...] 10/08/2022 How often do you attend chur ch or rastafarian services? 1 to 4 times per year 10/08/2022 Do you belong to any clubs o r organizations such as quaker groups, unions, fraternal or athletic groups, or [...] Answer Date Recorded PHQ-2 Score 0 09/26/2022 [facility] - Occupational Stress [...] Date Recorded Dental: Regular Dentist Yes 02/02/20 21 Employment Answer Date Recorded Employment status Employed and actively working without restrictions 10/08/2022 Education Answer Date Recorded What is the highest level of school you have completed or the highest degree you have received? Bachelor's degree (e.g., BA, AB, BS) 10/08/2022 Sex and Gender Information Value Date Recorded Sex Assigned at Female 10/13/2018 9:32 AM POWER GRADER OPERATOR Gender Identity Female 10/13/2018 9:32 AM POWER GRADER OPERATOR Sexual Orientation Straight 10/13/2018 9: 32 AM POWER GRADER OPERATOR Last Filed Vital Signs Vital Sign Reading Time Taken Comments Blood Pressure 106/70 10/11/2022 2:46 PM POWER GRADER OPERATOR Pulse 72 04/02/2022 3:40 PM CDT Temperature 36 ??C (96.8 ??F) 04/02/2022 3:40 PM CDT Respiratory Rate 16 04/02/2022 3:40 PM CDT Oxygen Saturation 98% 10/02/2021 9:00 AM CDT Inhaled Oxygen Concentration - - Weight 62.9 kg (138 lb 10.7 oz) 10/11/2022 2:46 PM POWER GRADER OPERATOR Height 152 cm (4' 11.84) 10/11/2022 2:47 PM POWER GRADER OPERATOR Body Mass Index 27.23 10/11/2022 2:46 PM POWER GRADER OPERATOR Plan of Treatment Not on file Goals Goal Patient Goal Type Associated Problems Recent Progress Patient-Stated? Author [facility] Care Plan for Obstetrics COVID-19 Care Plan [facility] Care Plan for Obstetrics COVID-19 Sarahi James M.D. Procedures Procedure Name Priority Date/Time Associated Diagnosis Comments DX FINGERS RIGHT 2+ VIEWS RAD - Semiurgent (Fast; most ED patients; some inpatients) 04/09/2024 6:03 PM CDT HCV AB SCRN W/REFLEX TO HCV PCR, S Routine 10/11/2022 3:45 PM POWER GRADER OPERATOR Examination Test With Positive Result (HCC) HIV-1/-2 AG AND AB SCRN, PLASMA Routine 10/11/2022 3:45 PM POWER GRADER OPERATOR Examination Test With Positive Result (HCC) CHLAMYDIA/GONORRH OEAE AMPLIFIED RNA Routine 10/11/2022 3:25 PM POWER GRADER OPERATOR Examination Test With Positive Result (HCC) 2 HR GLUCOSE CASS Routine 04/13/2022 8:43 AM CDT Diabetes Mellitus Gestational (HCC) THINPREP SCREEN HPV REFLEX Routine 12/13/2020 4:34 PM POWER GRADER OPERATOR Pap Smear Examination from Last 3 Months [...] and Ab Scrn, Plasma (10/11/2022 3:45 PM POWER GRADER OPERATOR) Pathologist [facility] HIV-1/-2 Ag and Ab Scrn, P Negative Negative 10/12/2022 9:59 AM POWER GRADER OPERATOR [facility] Comment: Negative result does not rule out HIV infection. If exposure to HIV infection occurred <14 days ago, contact the laboratory to request addition of HIV-1 RNA detection / quantification test (HIVQN). Blood (Blood, Venous) 10/11/2022 3:45 PM POWER GRADER OPERATOR 10/12/2022 7:12 AM POWER GRADER OPERATOR Alok Fischer M.D. LAB MICROBIOLOGY - B LOOD ORDERABLES [facility] [address] [place] [address] [facility] [address] [place] [address] * HCV Ab Scrn w/Reflex to HCV PCR, Serum (10/11/2022 3:45 PM POWER GRADER OPERATOR) HCV Ab Screen, S Negative Negative 10/12/2022 8:12 AM POWER GRADER OPERATOR [facility] Comment:Qjuutq-gj-ncfsxs rat io is <1.00. Blood (Blood, Venous) 10/11/2022 3:45 PM POWER GRADER OPERATOR 10/12/2022 7:12 AM POWER GRADER OPERATOR Alok Fischer M.D. LAB MICROBIOLOGY - B LOOD ORDERABLES [facility] [address] [place] [address] [facility] [address] [place] [address] * Chlamydia / Gonorrhoeae Amplified RNA (10/11/2022 3:25 PM POWER GRADER OPERATOR) Source Swab, Vagina 10/12/2022 12:54 AM POWER GRADER OPERATOR [facility] Chlamydia trachomatis amplified RNA Negative Negative 10/12/2022 12:54 AM POWER GRADER OPERATOR [facility] Source Swab, Vagina 10/12/2022 12:54 AM POWER GRADER OPERATOR [facility] Neisseria gonorrhoeae amplified RNA Negative Negative 10/12/2022 12:54 AM POWER GRADER OPERATOR [facility] Swab (Vagina) 10/11/2022 3:2 5 PM POWER GRADER OPERATOR 10/11/2022 7:14 PM POWER GRADER OPERATOR Alok Fischer M.D. LAB MICROBIOLOGY - G ENERAL ORDERABLES [facility] [address] [place] [address] [place] [address] * Glucose Tolerance, Two Hour, Non-Gestational (04/13/2022 8:43 AM CDT) Glucose Cass, Fast, Non-Gest, P 92 70 - 100 mg/dL 04/13/2022 10:54 AM CDT [facility] Glucose Cass, 2hr, Non-Gest, P 90 <200 mg/dL 04/13/2022 1:39 PM CDT [facility] Blood (Blood, Venous) 04/13/2022 8:43 AM CDT 04/13/2022 10:32 AM CDT Narrative [facility] - 04/13/2022 1:39 PM CDT Specimen Information: Specimen ID: [id number] Specimen Type: Blood Specimen Collection Start Date: 04/13/2022 ??8:43 AM Specimen Received Date: 04/13/2022 10:32 AM Specimen ID: [id number] Specimen Type: Blood Specimen Collection Start Date: 04/13/2022 10:48 AM Specimen Received Date: 04/13/2022 12:57 PM Alok Fischer M.D. LAB BLOOD NON ADD-ON [facility] [address] [place] [address], [facility] [place] [address] [place] [address] * ThinPrep Screen HPV Reflex (12/13/2020 4:34 PM POWER GRADER OPERATOR) 12/22/2020 1:52 PM POWER GRADER OPERATOR [facility] Report electronically signed by Nicolette Floyd MD I verify that I have examined all relevant slides/materials for the specimen(s) and rendered or confirmed the diagnosis. 12/22/2020 1:52 PM POWER GRADER OPERATOR [facility] Gross Description Received specimen in a ThinPrep vial. 12/22/2020 1:52 PM POWER GRADER OPERATOR [facility] Pap Test Source Cervical/Endocervi berta 12/22/2020 1:52 PM POWER GRADER OPERATOR [facility] Clinical History well woman 12/22/19 1:52 PM POWER GRADER OPERATOR [facility] Menstrual Status(LMP, PM, ) LMP Nov 25, 2019 12/22/2020 1:52 PM POWER GRADER OPERATOR [facility] Hormone Therapy/Contracep tives None/Not known 12/22/2020 1:52 PM POWER GRADER OPERATOR [facility] Interpretation Cervical/Endocervi berta ??(ThinPrep): Satisfactory for Evaluation Negative for Intraepithelial Lesion or Malignancy Reactive cellular changes associated with: ? Reparative or inflammatory changes 12/22/2020 1:52 PM POWER GRADER OPERATOR [facility] Varies (Cervix/Endocerv ix) 12/13/2020 4:34 PM POWER GRADER OPERATOR 12/14/2020 7:11 AM POWER GRADER OPERATOR Hiwot Shepard APRN C.N.P., R.N. LAB [facility] [place] PATHDX ORDERABLES [facility] [address] [place] [address], [facility] [address] [place] [address] from Last 3 Months or Most Recently Relevant to Health Maintenance Additional Health Concerns Active Problems Noted Date Diagnosed Date [facility] Care Plan for Obstetrics COVID-19 Care Teams Supervisor [employer] Relationship Specialty Start Date End Date None Reported, Pcp PCP - General Family Medicine 01/30/24
[2024-04-29] MEDS: ASPIRIN 81 MG TAB.CHEW 162 MG PO (18:05)
[2024-04-29 18:40] LABS: Basophils Percent Auto 0.7 % (0.0-3.0); Eosinophils Percent Auto 3.2 % (0.0-7.0); Hematocrit 38.6 % (33.0-51.0); Hemoglobin* 13.1 gm/dL (12.0-16.0); Immature Granulocytes Pct Auto 0.2 %; Mean Corpuscular HGB Conc 34 gm/dL (32-36); Mean Corpuscular Hemoglobin 29 pg (26-34); Mean Corpuscular Volume 85 fL (80-100); Monocytes Percent Auto 5.8 % (0.0-11.0); Neutrophils Percent Auto 48.1 % (42.0-72.0); Platelet Count* 418 K/uL (140-440); RDW Coefficient of Variation % 12.1 % (11.5-15.5); Red Blood Count 4.57 m/uL (4.00-5.20); White Blood Count* 11.44 K/uL (4.50-11.00)
[2024-04-29 18:40] LABS: Appearance Urine Clear (Clear); Bilirubin Urine Negative (Negative); Blood Urine Negative (Negative); Color Urine Yellow (Yellow); Glucose Urine Negative (Negative); Ketones Urine Negative (Negative); Leukocyte Esterase Urine Negative (Negative); Nitrite Urine Negative (Negative); Protein Urine Negative (Negative); Urobilinogen Urine 0.2 (0.2-1.0); pH Urine 6.5 (5.0-8.5)
[2024-04-29 18:42] LABS: Ur HCG Qualitative* Negative (Negative)
[2024-04-29 18:51] LABS: Slide Review Reflex No
[2024-04-29 19:01] LABS: RBC Urine 0-2 (0-2); Squamous Epithelial Cell Urine Few (None-Few); WBC Urine 0-2 (0-5)
[2024-04-29 19:17] LABS: Albumin* 5.1 g/dL (3.3-5.0); Chloride* 108 mmol/L (96-114); Sodium* 141 mmol/L (135-149)
[2024-04-29 19:18] LABS: Potassium* 3.8 mmol/L (3.6-5.1)
[2024-04-29 19:20] LABS: Alanine Aminotransferase* 31 U/L (4-35); Alkaline Phosphatase* 89 U/L (40-150); Anion Gap 7 mEq/L (7-15); Aspartate Amino Transferase* 29 U/L (12-35); Bilirubin Total* 0.5 mg/dL (0.1-1.5); Blood Urea Nitrogen* 13 mg/dL (5-24); Carbon Dioxide* 26 mmol/L (20-32); Creatinine* 0.6 mg/dL (0.5-1.5); Est. Creatinine Clearance* 107.22; Estimated Glomerular Filt Rate 127 ml/min; Glucose* 97 mg/dL (60-115); Lipase* 175 U/L (23-300); Total Protein* 8.8 g/dL (6.0-8.3)
[2024-04-29 19:21] LABS: Calcium* 9.6 mg/dL (8.4-10.6)
[2024-04-29 19:34] LABS: Troponin I* < 0.01 ng/mL (0.01-0.04)
[2024-04-29 19:41] LABS: D Dimer Quantitative* 0.07 ug/ml (0.00-0.50)
--- NOTE | 2024-04-29 19:41 | CRLHL7_ITS ---
For Patients: As a result of the Century Cures Act, medical imaging exams and procedure reports are released immediately into your electronic medical record. You may view this report before your referring provider. If you have questions, please contact your health care provider. INDICATION: Right upper quadrant abdominal pain, nausea, dizziness. History of cholecystectomy.. COMPARISON: None. TECHNIQUE: CT of the abdomen and pelvis with intravenous contrast. Multiplanar axial, coronal, and sagittal reformats were reconstructed. Contrast: 67 mL Isovue 370. FINDINGS: Lung bases: Normal. Liver: Mild diffuse hepatic steatosis. The liver is borderline enlarged and measures 19 centimeters in length. The liver surface is not nodular or cirrhotic. No focal masses. The portal veins and hepatic veins are patent. Gallbladder and bile ducts: Cholecystectomy. No bile duct dilation. Pancreas: Normal. Spleen: Normal. Adrenal glands: Normal. Kidneys: Normal parenchyma. No cyst or solid mass. No calculi. No urinary tract dilation. Urinary bladder: Normal. Pelvis: Physiologic appearance of the uterus and both ovaries. Vessels: Normal. Bowel: No dilated or inflamed bowel. The appendix is normal.. Moderate stool burden. Lymph nodes: No adenopathy. Peritoneum: No ascites. Abdominal wall: Tiny fat containing umbilical hernia. Bones: No fractures. No focal worrisome bone lesions. IMPRESSION: Mild diffuse hepatic steatosis and borderline hepatomegaly. Please note that all CT scans at this facility use dose modulation, iterative reconstruction, and/or weight-based dosing when appropriate to reduce radiation dose to as low as reasonably achievable. Dictated by Zeenat Lerma MD @ 04/29/2024 8:44:47 PM (Electronically Signed)
== END 2024-04-29 21:23 | disposition home or self-care (01) ==
PROVIDERS: Emergency Provider Emergency Medicine
DX: R10.11 Right upper quadrant pain (principal); R00.2 Palpitations
CPT/HCPCS: 36415; 74177; 80053; 81001; 81025; 83690; 84484; 85025; 85379; 99284; A9270; Q9967

== ENCOUNTER 2025-03-17 12:23 | Emergency (ER) | payer MEDICAID, SELFPAY ==
--- OUTSIDE RECORDS SUMMARY | 2025-03-17 12:30 | XMS_ITS | Clinical Summary ---
Author Organization [facility] Address [address] [place] [address] Care Team Providers Care Regulation Supervisor Name Role Phone None Reported, Pcp Primary Care Provider Unavail able Source Comments Patient records contain information from all sites at [facility]. For routine questions regarding patient records, call [phone] during business hours, M-F 8:00 AM - 5:00 PM Central Time. Record requests for emergency care only can be directed to [phone] at any time.[facility] Allergies Active Allergy Reactions Criticality Noted Date [...] itch, watery eyes, stuffy nose, sneezing Medications smliivw-Mb-ardh- FA (VINATE ONE) 60 mg iron-1 mg per [...] Take 50 mg by mouth. 02/12/2022 Active yejeewt-Zf-funx- FA 27 mg iron- 1 mg tabletIndication s: Examination Test With Positive Result (HCC) Take 1 tablet by mouth daily. 90 tablet 3 10/11/2022 Active oxyCODONE-acetam inophen (PERCOCET) 5-325 mg per tablet Take 1-2 tablets by mouth every 6 (six) hours as needed for pain. 07/23/2023 Active sennosides-docus ate sodium (SENOKOT-S) 8.6-50 mg per tablet Take 1 tablet by mouth 2 (two) times a day. 07/23/2023 Active Active Problems Patient Care Coordination No te Formatting of this note migh t be different from the original. 1st/2nd trimester education completed Pre-reg completed at [facility]. LMP: 08/19/22 EDC:05/26/2023 provider:Evita ALMANZAR involved:, Loc Problem Noted Date Diagnosed Date History Of Uterine Scar From Previous Surgery Overview (10/11/2022): Previous for failed induction of labor Leaning towards repeat scheduled , would consider TOLAC in the event that she spontaneous labor prior to her date Plans to have up to 4 children Examination Test With Positive Result 10/11/2022 Overview (10/11/2022): She is considering transferring care to [place] given that she now works in [place] Will call regarding cell free DNA versus quad screen, quad screen in prior showed increased risk for trisomy 21, baby was normal History of GDM A1 in prior Her 2 hour GTT was normal A1c pending Recommending a diabetic diet in Diabetes Mellitus Gestational 11/23/20 Overview (12/06/2021): Diagnosed on November 22 by a GCT of 200 Currently diet controlled Plan serial growth US COVID-19 Infection 08/31/2021 Overview (12/06/2021): S/p Monoclonal antibody infusions Recommend 39wk IOL Depression Major Recurrent Mild 01/04/2021 Overview (10/11/2022): Previously controlled on sertraline, no longer using this medication, states that mood is good Wart Plantar 12/13/2020 Overview (01/04/2021): Right foot Resolved Problems Problem Noted Date Diagnosed Date Resolved Date High Risk 09/01/2021 03/27/20 22 Overview (09/01/2021): Covid dx at 16 wks GA See consult from 09/01/21 Sarahi Stanley M.D. Examination Normal First Trimester 08/18/2021 03/27/2022 Overview (01/22/2022): - She was recently seen for a infertility evaluation including HSG, which was normal, this is a spontaneous conception. - Reviewed precautions, nutrition, and weight gain - abnormal Quad screen, increased risk Down syndrome, patient declining referral to genetic counseling, declining amniocentesis - given abnormal quad and missing views, referred to [facility] for level 2 ultrasound MFM: Level 2 scan demonstrated normal anatomy normal biometry and no soft markers of aneuploidy. We did discuss whether she wishes to pursue cell free DNA screening, however she did feel reassured by the normal scan and did not wish to go any further with testing. GERD: Protonix Breast feeding Declines contraception GBS+ Immunizations Immunization Administration Dates Next Due 4vHPV (discontinued) 10/19/2010,02/16/2010,01/19 [...] How often do you attend chur or faith services? 1 to 4 times per year 10/08/2022 Do you belong to any clubs o r organizations such as alevism groups, unions, fraternal or athletic groups, or [...] Answer Date Recorded PHQ-2 Score 0 09/26/2022 [facility] - Occupational Stress [...] place to sleep or slept in a mcc (including now)? 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 Not on file Not on file Not on file Last Filed Vital Signs Vital Sign Reading Time Taken Comments Blood Pressure 106/70 10/11/2022 2:46 PM EL TEACHER Pulse 72 04/02/2022 3:40 PM CDT Temperature 36 C (96.8 F) 04/02/2022 3:40 PM CDT Respiratory Rate 16 04/02/2022 3:40 PM CDT Oxygen Saturation 98% 10/02/2021 9:00 AM CDT Inhaled Oxygen Concentration - - Weight 62.9 kg (138 lb 10.7 oz) 10/11/2022 2:46 PM EL TEACHER Height 152 cm (4' 11.84) 10/11/2022 2:47 PM EL TEACHER Body Mass Index 27.23 10/11/2022 2:46 PM EL TEACHER Plan of Treatment Health Maintenance Due Date Last Done Comments Pneumococcal vaccine (0-49 y ears) (1 of 2 - PCV) 2016 Depression Monitoring (PHQ-9) 07/23/2022 03/23/2022 Cervical/Vaginal Cancer Screening 12/13/2023 021 COVID-19 Vaccine ( - 2023-2 5 season) 2024 Glucose Monitoring for Gestational Diabetes 08/18/2024 Influenza Vaccine (#1) 2024 , 01/04/2021, 11/04/2014, Additional history exists Depression Monitoring (PHQ-9 for quality tracking) 12/02/2024 DTaP,Tdap,and Td Vaccines (9 - Td or Tdap) 04/02/2033 04/02/2023, 11/22/2021, 12/13/2020, Additional history exists IPV Vaccines Completed 04/25/2002, 01/02, 1997, Additional history exists Hepatitis B Vaccines Completed 10/21/2008, 03/25/2001, 03/25/2001, Additional history exists HPV Vaccines Completed 10/19/2010, 01/30, 01/19/2010 Chlamydia and Gonorrhea Screening Discontinued 10/11/2022, 04/02/2022, 05/18/2021, Additional history exists HIV Screening Completed 10/11/2022, 07/17/2021 Hepatitis B Screening Discontinued 10/11/2022, Hepatitis C Screening Completed 10/11/2022, 021 Goals Goal Patient Goal Type Associated Problems Recent Progress Patient-Stated? Author [facility] Care Plan for Obstetrics COVID-19 Care Plan [facility] Care Plan for Obstetrics COVID-19 Sarahi James M.D. Procedures Procedure Name Priority Date/Time Associated Diagnosis Comments HCV AB SCRN W/REFLEX TO HCV PCR, S Routine 10/11/2022 3:45 PM EL TEACHER Examination Test With Positive Result (HCC) HIV-1/-2 AG AND AB SCRN, PLASMA Routine 10/11/2022 3:45 PM EL TEACHER Examination Test With Positive Result (HCC) HEPATITIS B SURFACE ANTIGEN Routine 10/11/2022 3:45 PM EL TEACHER Examination Test With Positive Result (HCC) CHLAMYDIA/GONORRHOE AE AMPLIFIED RNA Routine 10/11/2022 3:25 PM EL TEACHER Examination Test With Positive Result (HCC) THINPREP SCREEN HPV REFLEX Routine 12/13/2020 4:34 PM EL TEACHER Pap Smear Examination from Last 3 Months or Most Recently Relevant to Health Maintenance Results * HIV-1/-2 Ag and Ab Scrn, Plasma (10/11/2022 3:45 PM EL TEACHER) HIV-1/-2 Ag and Ab Scrn, P Negative Negative 10/12/2022 9:59 AM EL TEACHER [facility] Comment: Negative result does not rule out HIV infection. If exposure to HIV infection occurred <14 days ago, contact the laboratory to request addition of HIV-1 RNA detection / quantification test (HIVQN). Blood (Blood, Venous) 10/11/2022 3:45 PM EL TEACHER 10/12/2022 7:12 AM EL TEACHER us Alok Fischer M.D. LAB MICROBIOLOGY - BLOOD ORD ERABLES Final Result [facility] [address] [place] [address] [facility] [address] [place] [address] * HCV Ab Scrn w/Reflex to HCV PCR, Serum (10/11/2022 3:45 PM EL TEACHER) Pathologist [facility] HCV Ab Screen, S Negative Negative 10/12/2022 8:12 AM EL TEACHER [facility] Comment:Ualhgv-uu-fqajod rat io is <1.00. Blood (Blood, Venous) 10/11/2022 3:45 PM EL TEACHER 10/12/2022 7:12 AM EL TEACHER us Alok Fischer M.D. LAB MICROBIOLOGY - BLOOD ORD ERABLES Final Result Performing Organization Address [facility] Co de Phone Number [facility] [address] [place] [address] [facility] [address] [place] [address] * Hepatitis B Surface Antigen (10/11/2022 3:45 PM EL TEACHER) Pathologist [facility] HBs Antigen, S Nonreactive Nonreactive 10/11/2022 10:27 PM EL TEACHER AUS Blood (Blood, Venous) 10/11/2022 3:45 PM EL TEACHER 10/11/2022 9:55 PM EL TEACHER us Alok Fischer M.D. LAB MICROBIOLOGY - BLOOD ORD ERABLES Final Result Performing Organization Address City/[facility]/ZIP Co de Phone Number [facility] [address] [place] [address], [place] [facility] [address] [place] [address] * Chlamydia / Gonorrhoeae Amplified RNA (10/11/2022 3:25 PM EL TEACHER) Source Swab, Vagina 10/12/2022 12:54 AM EL TEACHER [facility] Chlamydia trachomatis amplified RNA Negative Negative 10/12/2022 12:54 AM EL TEACHER [facility] Source Swab, Vagina 10/12/2022 12:54 AM EL TEACHER [facility] Neisseria gonorrhoeae amplified RNA Negative Negative 10/12/2022 12:54 AM EL TEACHER [facility] Swab (Vagina) 10/11/2022 3:2 5 PM EL TEACHER 10/11/2022 7:14 PM EL TEACHER us Alok Fischer M.D. LAB MICROBIOLOGY - GENERAL O RDERABLES Final Result [facility] [address] [place] [address], [facility] MKTO [facility] [address] [place] [address] * ThinPrep Screen HPV Reflex (12/13/2020 4:34 PM EL TEACHER) 12/22/2020 1:52 PM EL TEACHER [facility] Report electronically signed by Nicolette Floyd MD I verify that I have examined all relevant slides/materials for the specimen(s) and rendered or confirmed the diagnosis. 12/22/2020 1:52 PM EL TEACHER [facility] Gross Description Received specimen in a ThinPrep vial. 12/22/2020 1:52 PM EL TEACHER [facility] Pap Test Source Cervical/Endocervi berta 12/22/2020 1:52 PM EL TEACHER [facility] Clinical History well woman 12/22/19 1:52 PM EL TEACHER [facility] Menstrual Status(LMP, PM, ) LMP Nov 25, 2019 12/22/2020 1:52 PM EL TEACHER [facility] Hormone Therapy/Contracep tives None/Not known 12/22/2020 1:52 PM EL TEACHER [facility] Interpretation Cervical/Endocervi berta (ThinPrep): Satisfactory for Evaluation Negative for Intraepithelial Lesion or Malignancy Reactive cellular changes associated with: Reparative or inflammatory changes 12/22/2020 1:52 PM EL TEACHER [facility] Varies (Cervix/Endocerv ix) 12/13/2020 4:34 PM EL TEACHER 12/14/2020 7:11 AM EL TEACHER us Hiwot Shepard APRN, C.N.P., R.N. LAB PAP PATHDX ORDERABLES Final Result [facility] [address] [place] [address], [place] [facility] [address] [place] [address] from Last 3 Months or Most Recently Relevant to Health Maintenance Additional Health Concerns Active Problems Noted Date Diagnosed Date [facility] Care Plan for Obstetrics COVID-19 Insurance [facility] Care Teams Regulation Supervisor Relationship Specialty Start Date End Date None Reported, Pcp PCP - General Family Medicine 01/30/24
--- OUTSIDE RECORDS SUMMARY | 2025-03-17 12:30 | XMS_ITS | Clinical Summary ---
Author Organization [facility] Address [address] [place] [id number] Care Team Providers Care Customer Service Leader Name Role Phone Pcp, No Primary Care [...] itch, watery eyes, stuffy nose, sneezing Medications elderberry fruit (ELDERBERRY ORAL) Take 3 Each by mouth every morning. gummies Active ibuprofen (ADVIL; MOTRIN) 600 mg tabletIndicatio ns:Gallstones Take 1 Tablet (600 mg) by mouth every 6 hours if needed for Pain. Maximum of 3200 mg in 24 hours. 30 Tablet 07/23/2023 5:04 PM CDT 07/23/2023 Active benzonatate (TESSALON) 200 mg capsuleIndicati ons:Acute cough Take 1 Capsule (200 mg) by mouth 3 times daily if needed for Cough. 21 Capsule 12/28/2024 Active Active Problems Problem Noted Date Diagnosed Date Acute cholecystitis 07/23/2023 Lactating mother 07/23/2023 History of gestational diabetes 07/23/2023 S/P laparoscopic cholecystectomy 07/23/2023 delivery delivered 05/23/2023 History of uterine scar from previous surgery Overview (07/23/2023): Previous for failed induction of labor Leaning towards repeat scheduled , would consider TOLAC in the event that she spontaneous labor prior to her date Plans to have up to 4 children Resolved Problems Problem Noted Date Diagnosed Date Resolved Date Gestational diabetes mellitus (GDM) 11/23/2021 05/24/2023 Overview (02/09/2022): Diagnosed on November 22 by a GCT of 200 Currently diet controlled Plan serial growth US Disease due to severe acute respiratory syndrome coronavirus 2 (SARS-CoV-2) 08/31/202105/03 Overview (02/09/2022): S/p Monoclonal antibody infusions Recommend 39wk IOL 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 01/04/2021 05/24/2023 Underweight 08/20/2012 05/24/2023 Overview (09/16/2012): see workup upper gastrointestinal barium swallow negative Environmental allergies 08/20/201205/03 Anemia, unspecified 05/24/20 Overview (06/13/2012): Anemia Encounters Date Type Department Care Team Description 12/28/2024 12:10 PM LIFT ELECTRICIAN Office Visit [facility] [address] [place] [address] Rose Camarena, KIMBERLI Ear Problem; Viral Syndrome 12/28/2024 Travel from Last 3 Months Immunizations Immunization Administration Dates Next Due DTaP 05/13/2001, 7,1997,07/07 [...] Housing in the Last Year 1 07/23/2023 Interpersonal Safety Answer Date Record ed Are you being hit, kicked, p ushed or yelled at (see row info)? No 04/09/2024 Interpersonal Safety Abuse 12 - 18 Not on file 04/09/2024 Interpersonal Safety Ambulatory Vulnerability No t on file 04/09/2024 Comments No Sex and Gender Information Value Date Recorded Sex Assigned at Not on file Legal Sex Female 8:23 AM LIFT ELECTRICIAN Gender Identity Not on file Sexual Orientation Not on file Obstetrics History Para Term AB IAB SAB Ectopic Multiple Livin g Live Births 2 2 2 0 2 2 Date Outcome GA Total Labor Labor/2nd/3rd Weight Sex Type Anes PTL Suzanne A1 A5 Name Clin 2021 Term 39w 1d 0h 02m 0h 02m 3.49 kg (7 lb 11 oz) M C-Sec tion Spina l,Epi dural Livin g 8 9 SHEBA Reed,BB ZULY Larson, Luis Mcwilliams MD Complications:Dysfunctional Labor,Failure to Progress in First Stage,Gestational diabetes mellitus Delivery Location:Hospital ( [facility] 2022 Term 39w 4d 0h 03m 0h 03m 4.13 kg (9 lb 1.7 oz) F C-Sec tion Livin g 9 9 SHEBA Reed,BG Samuel Beasley MD Delivery Location:Hospital ( [facility]) Last Filed Vital Signs Vital Sign Reading Time Taken Comments Blood Pressure 115/58 12/28/2024 12:31 PM LIFT ELECTRICIAN Pulse 101 12/28/2024 12:31 PM LIFT ELECTRICIAN Temperature 36.7 C (98.1 F) 12/28/2024 12:31 PM LIFT ELECTRICIAN Respiratory Rate 20 12/28/2024 12:31 PM LIFT ELECTRICIAN Oxygen Saturation 97% 12/28/2024 12:31 PM LIFT ELECTRICIAN Inhaled Oxygen Concentration - - Weight 62.8 kg (138 lb 8 oz) 12/28/2024 12:31 PM LIFT ELECTRICIAN Height 154.9 cm (5' 1) 04/09/2024 5:42 PM CDT Body Mass Index 26.17 04/09/2024 5:42 PM CDT Plan of Treatment Health Maintenance Due Date Last Done Comments Depression screening for age 12+ 2009 BMI (ht and wt on same day) for age 18+ 2015 Hepatitis C screening for age 18-79 2015 Tetanus booster 10/21/2018 10/21/2008 COVID-19 vaccine series ( season) 2024 Influenza Vaccine (Season Ended) 2025 08/20/2012, 10/19/2010, 09/15/2009, Additional history exists Pap test for age 21-65 06/25/2027 06/25/2024, 2023 Tdap Completed 10/21/2008 HIV for age 15-65 Completed 10/11/2022 Pneumococcal series for age 6-49 Aged Out No longer eligible based on patient's age to complete this topic Procedures Procedure Name Priority Date/Time Associated Diagnosis Comments CREMATOR THIN PREP PAP SCREEN IMAGED Routine 06/25/2024 10:09 AM CDT HIV EXTERNAL Routine 10/11/2022 from Last 3 Months or Most Recently Relevant to Health Maintenance Results * CREMATOR THIN PREP PAP SCREEN IMAGED (06/25/2024 10:09 AM CDT) Case Report Gynecologic Cytology Report Case: [id number] Authorizing Provider: Magalys Sepulveda PA-C Collected: 06/25/2024 1009 Ordering Location: [facility] Received: 06/29/2024 1512 First Screen: Chris Coleman Specimen: CREMATOR ThinPrep Vial Screening, Cervical 07/03/2024 2:04 PM CDT [facility] INTERPRETATION/ RESULT NEGATIVE FOR INTRAEPITHELIAL LESION OR MALIGNANCY (NIL) (none) 07/03/2024 2:04 PM CDT [facility] at 1404 CDT SPECIMEN ADEQUACY Satisfactory for evaluation No endocervical component seen 07/03/2024 2:04 PM CDT [facility] HPV REQUEST HPV and PAP 07/03/2024 2:[address] [facility] Fund [facility] Date of LMP 06/14/2024 07/03/2024 2:[address] [facility] Fund [facility] Last Pap Date 12/13/2020 07/03/2024 2:04 PM CDT [facility] Last Pap Result NIL 2:04 PM CDT [facility] Abnormal Pap or [place] Bx in last 5 years No 07/03/2024 2:[address] [facility] Fund [facility] Menstrual Status Hormonally Suppressed 07/03/2024 2:04 PM CDT [facility] [place] Bx Done Today No 07/03/2024 2:04 PM CDT [facility] Additional Information 07/03/2024 2:04 PM CDT [facility] Comment: Interpreted at [facility] - [address] [facility] [address], [place] [address] Automated Review Successful 07/03/2024 2:04 PM T [facility] Comment:Specimen processed s uccessfully by automated manager combination device, ThinPrep Imaging System, [employer] ANCILLARY TESTING CREMATOR HPV Ordered, Please see separate report 07/03/2024 2:04 PM CDT [facility] Note The pap test is a screening technique, not a diagnostic procedure. It is used primarily to screen for squamous cancers and precursor lesions. Published studies have shown that it is subject to both false negative and false positive results. The pap test should not be used as the sole means to diagnose or exclude pre-malignant and malignant lesions. 07/03/2024 2:04 PM CDT [facility] Other (Cervical) 06/25/2024 10:09 AM CDT 06/29/2024 3:12 PM CDT us March L Derick [facility] PATHOLOGY/CYTOLOGY Final R esult [facility] [address] [place] [address], [place] * HIV EXTERNAL (10/11/2022) EXTERNAL HIV Negative [facility] Blood BLOOD SPECIMEN / Unknown us Evita Allan BSA/AML COMPLIANCE OFFICER LABORATORY Final Resul t [facility] [address] [place] [address], [place] from Last 3 Months or Most Recently Relevant to Health Maintenance Insurance [facility] [place] [id number] [id number] Advance Directives * Full Code (Latest Code [...] Code Status Discussion: Reviewed Preferences Care Teams Customer Service Leader Relationship Specialty Start Date End Date Pcp, No . PCP - General 05/06/23
[2025-03-17 12:33] VITALS: BP 114/75; PULSE 91; RESP 18; TEMP 36.6; O2SAT 98; BMI 27.2
--- NOTE | 2025-03-17 12:48 | ED.GENADULT ---
HPI - General Adult General Chief complaint: Abdominal Pain Stated complaint: abdominal pain, 6 weeks Time Seen by Provider: 03/17/25 12:27 History of Present Illness HPI narrative: is a 3 para 2, edc 11/25. lmp 06/25. ~6 weeks gestation. called [facility] and they sent her here. presents to ed with concerns of having lower left abd pain. no vaginal bleeding. has her 22-month?old daughter in her arms. this started yesterday as she also had a headache all day. does state that she has sob with moving around. denies cp. 29-year-old woman presenting to emergency department concern of left lower abdominal pain. Is about 6 weeks gestation by LMP. Pending 1st ultrasound on anticipated visit in about 3 weeks. Mild to moderate but steady pain in the left low pelvis. It just atypical to prior pregnancies and was so was concerned. No bleeding. No fever. No known cysts. No history of ectopic. She can not make pain better or worse. No dysuria. Related Data Home Medications ?Medication ?Instructions ?Recorded ?Confirmed cholecalciferol (vitamin D3) 25 25 mcg PO QDAY 01/14/25 01/14/25 mcg (1,000 unit) capsule Previous Rx's ?Medication ?Instructions ?Recorded amoxicillin 500 mg tablet 500 mg PO Q8H #21 tabs 01/14/25 Allergies Allergy/AdvReac Type Severity Reaction Status Date / Time No Known Drug Allergies Allergy Verified 07/02/24 09:11 Review of Systems Status of ROS: Reports: 6 or more systems reviewed and unremarkable except as noted in History and below [facility] Medical History Otitis media ?H66.90 - Otitis media, unspecified, unspecified ear (ICD-10) Obesity ?E66.9 - Obesity, unspecified (ICD-10) Plantar warts ?B07.0 - Plantar wart (ICD-10) Incontinence ?R32 - Unspecified urinary incontinence (ICD-10) Gestational diabetes ?O24.419 - Gestational diabetes mellitus in , unspecified control (ICD-10) History of gestational diabetes ?Z86.32 - Personal history of gestational diabetes (ICD-10) History of anemia ?Z86.2 - Personal history of diseases of the blood and blood-forming organs and certain disorders involving the immune mechanism (ICD-10) Surgical History History of cholecystectomy ?Z90.49 - Acquired absence of other specified parts of digestive tract (ICD-10) History of delivery ?Z98.891 - History of uterine scar from previous surgery (ICD-10) Family History Father Diabetes Social History What is your current living situation?: I presently have a place to live Problems where you live: no known problems In the past 12 months, utilities in danger of being shut off: no In past 12 months, lack of transportation kept you from medical appts, meetings, work, or getting things needed for daily living: no In the past 12 mos, have been you worried that your food would run out before you had money to buy more?: never true In the past 12 mos, the food you bought just didn't last and you didn't have money to buy more?: never true Smoking Status: Never smoker Do you use any of these nicotine containing products: None Second hand tobacco smoke exposure: No How often do you have a drink containing alcohol: never AUDIT-C Alcohol total score: 0 Non-prescribed substance use: denies use How often does anyone, including family, friends and others, physically hurt you: unable to answer How often does anyone, including family, friends and others, insult or talk down to you: unable to answer How often does anyone, including family, friends and others, threaten you with harm: unable to answer How often does anyone, including family, friends and others, scream or curse at you: unable to answer service: No Exam Narrative: Exam Narrative: Mild discomfort to palpation in the left adnexal in slightly lower pelvis. No flank pain. No pain along the inguinal area. Not exacerbated by hip flexion or extension of the leg. No flank pain. Breathing easily. Heart in regular rate and rhythm without murmur rub or gallop. Const: Vital Signs, click to edit/add: Vital Signs - 24 hr 03/17/25 12:33 Temperature 97.8 F Pulse Rate [Pulse Oximeter] 91 Respiratory Rate 18 Blood Pressure [Le ft Upper Arm] 114/75 Pulse Oximetry 98 Oxygen Delivery Me thod Room Air Documenting provider has reviewed patient's vital signs: yes Course Vital Signs Vital signs: Initial Vital Signs Temperature 97.8 F 03/17/25 12:33 Temperature Source Temporal Artery Scan 03/17/25 12:33 Pulse Rate 91 03/17/25 12:33 Pulse Rhythm Regular 03/17/25 12:33 Respiratory Rate 18 03/17/25 12:33 Blood Pressure 114/75 03/17/25 12:33 Blood Pressure Mean 88 03/17/25 12:33 Blood Pressure Position Sitting 03/17/25 12:33 Pulse Oximetry 98 03/17/25 12:33 Oxygen Delivery Method Room Air 03/17/25 12:33 Vital Signs Temperature 97.8 F 03/17/25 12:33 Pulse Rate 91 03/17/25 12:33 Respiratory Rate 18 03/17/25 12:33 Blood Pressure 114/75 03/17/25 12:33 Pulse Oximetry 98 03/17/25 12:33 Oxygen Delivery Method Room Air 03/17/25 12:33 Temperature 97.8 F 03/17/25 12:33 Pulse Rate 86 03/17/25 13:39 Respiratory Rate 16 03/17/25 13:39 Blood Pressure 122/66 03/17/25 13:39 Pulse Oximetry 98 03/17/25 13:39 Oxygen Delivery Method Room Air 03/17/25 13:39 Medical Decision Making MDM Narrative Medical decision making narrative: Discussed findings with bail bonding agent of transvaginal ultrasound. Noting gestational sac intrauterine estimated 5 week 5 days. No other concerning findings. Pending Radiology over-read at this point. This is not typical torsion level pain. Technique: Transabdominal sonography of the pelvis was performed, followed by transvaginal sonography to better evaluate the uterus and ovaries. Findings: UTERUS and GESTATIONAL SAC Intrauterine gestation: Single. Mean gestational sac diameter: 0.85 cm. Yolk sac: 1.8 mm [place]-rump length (CRL): Not visualized Estimated US age: 5 weeks 5 days heart motion: Not visualized Subchorionic hemorrhage: 2.3 x 1.7 x 0.5 cm. OVARIES Right ovary: 3.9 x 2.7 x 2.1 centimeters with a 2.6 centimeter complex cyst consistent with a corpus luteum. Left ovary: 2.4 x 1.9 x 1.7 centimeter. FREE FLUID None. Impression: 1. Single intrauterine gestational sac with size corresponding to dates of 5 weeks 5 days. 2. pole and FHR are not identified but may not be identified at this early age so viability can not be confirmed at this time. 3. 2.3 centimeter subchorionic hemorrhage Dictated by Denzel Rodriguez MD @ 03/17/2025 1:37:54 PM Urinalysis is normal. Discussed findings with Lior. Relatively benign physical exam and mild symptoms. She says she was just worried something might be wrong with the Will follow-up with her if there is other concerning radiology report. Otherwise follow-up as scheduled in clinic. Stay well-hydrated. Be seen for persistent and uncontrolled pain, fever. I will call you if Radiology has anything more significant to say about your ultrasound. Please follow-up as scheduled in clinic. Medical Records Medical records reviewed: Yes I reviewed the patient's medical records Lab Data Lab results reviewed: Yes I reviewed the patient's lab results Labs: Lab Results 03/17/25 Range/Units 12:53 Urine Color Light yellow (Yellow) Urine Appearance Slightly Cloudy A (Clear) Urine pH 6.5 (5.0-8.5) Ur Specific [place] 1.010 (1.000-1.030) Urine Protein Negative (Negative) Urine Glucose (UA) Negative (Negative) Urine Ketones Negative (Negative) Urine Blood Negative (Negative) Urine Nitrite Negative (Negative) Urine Bilirubin Negative (Negative) Urine Urobilinogen 0.2 (0.2-1.0) Ur Leukocyte Esterase Negative (Negative) Urine RBC 0-2 (0-2) Urine WBC 0-2 (0-5) Ur Squamous Epith Cells Few (None-Few) Urine Bacteria None (None) Discharge Plan Discharge Clinical Impression: Pelvic pain affecting , Subchorionic bleed Patient Disposition: Home w/ Parent or Adult Condition: Stable Additional Instructions: Stay well-hydrated. Be seen for persistent and uncontrolled pain, fever. I will call you if Radiology has anything more significant to say about your ultrasound. Please follow-up as scheduled in clinic. Prescriptions: No Action cholecalciferol (vitamin D3) 25 mcg (1,000 unit) capsule 25 mcg PO QDAY amoxicillin 500 mg tablet 500 mg PO Q8H Qty: 21 0RF Follow Up/Referrals: Provider,Not a Local [Primary Care Provider] - Stand Alone Forms: [employer] Info Instructions
--- NOTE | 2025-03-17 12:53 | CRLHL7_ITS ---
For Patients: As a result of the Century Cures Act, medical imaging exams and procedure reports are released immediately into your electronic medical record. You may view this report before your referring provider. If you have questions, please contact your health care provider. Clinical information: Clinical gestational age 5 weeks 5 days. Left pelvic pain. Comparison: None. Technique: Transabdominal sonography of the pelvis was performed, followed by transvaginal sonography to better evaluate the uterus and ovaries. Findings: UTERUS and GESTATIONAL SAC Intrauterine gestation: Single. Mean gestational sac diameter: 0.85 cm. Yolk sac: 1.8 mm [place]-rump length (CRL): Not visualized Estimated US age: 5 weeks 5 days heart motion: Not visualized Subchorionic hemorrhage: 2.3 x 1.7 x 0.5 cm. OVARIES Right ovary: 3.9 x 2.7 x 2.1 centimeters with a 2.6 centimeter complex cyst consistent with a corpus luteum. Left ovary: 2.4 x 1.9 x 1.7 centimeter. FREE FLUID None. Impression: 1. Single intrauterine gestational sac with size corresponding to dates of 5 weeks 5 days. 2. pole and FHR are not identified but may not be identified at this early age so viability can not be confirmed at this time. 3. 2.3 centimeter subchorionic hemorrhage Dictated by Denzel Rodriguez MD @ 03/17/2025 1:37:54 PM (Electronically Signed)
[2025-03-17 13:01] LABS: Appearance Urine Slightly Cloudy (Clear); Bilirubin Urine Negative (Negative); Blood Urine Negative (Negative); Color Urine Light yellow (Yellow); Glucose Urine Negative (Negative); Ketones Urine Negative (Negative); Leukocyte Esterase Urine Negative (Negative); Nitrite Urine Negative (Negative); Protein Urine Negative (Negative); Urobilinogen Urine 0.2 (0.2-1.0); pH Urine 6.5 (5.0-8.5)
--- OUTSIDE RECORDS SUMMARY | 2025-03-17 13:05 | XMS_ITS | Clinical Summary ---
Author Organization [facility] Address [address] [place] [address] Care Team Providers Care Long Term Care Phlebotomist Name Role Phone Pcp, No Primary Care [...] Department Care Team Description 12/28/2024 12:10 PM HEEL WASHER STRINGING MACHINE OPERATOR Office Visit [facility] [address] [place] [address] Rose Camarena, KIMBERLI Ear Problem; Viral Syndrome [...] on file Legal Sex Female 8:23 AM HEEL WASHER STRINGING MACHINE OPERATOR Gender Identity Not on file Sexual Orientation [...] First Stage,Gestational diabetes mellitus Delivery Location:Hospital ( [facility] 2022 Term 39w 4d 0h 03m 0h 03m 4.13 kg (9 lb 1.7 oz) F C-Sec tion Livin g 9 9 SHEBA Reed,BG Samuel Beasley MD Delivery Location:Hospital ( [facility]) Last Filed Vital Signs Vital Sign Reading Time Taken Comments Blood Pressure 115/58 12/28/2024 12:31 PM HEEL WASHER STRINGING MACHINE OPERATOR Pulse 101 12/28/2024 12:31 PM HEEL WASHER STRINGING MACHINE OPERATOR Temperature 36.7 C (98.1 F) 12/28/2024 12:31 PM HEEL WASHER STRINGING MACHINE OPERATOR Respiratory Rate 20 12/28/2024 12:31 PM HEEL WASHER STRINGING MACHINE OPERATOR Oxygen Saturation 97% 12/28/2024 12:31 PM HEEL WASHER STRINGING MACHINE OPERATOR Inhaled Oxygen Concentration - - Weight 62.8 kg (138 lb 8 oz) 12/28/2024 12:31 PM HEEL WASHER STRINGING MACHINE OPERATOR Height 154.9 cm (5' 1) 04/09/2024 5:42 [...] Procedure Name Priority Date/Time Associated Diagnosis Comments [employer] THIN PREP PAP SCREEN IMAGED Routine 06/25/2024 10:09 AM CDT HIV EXTERNAL Routine 10/11/2022 from Last 3 Months or Most Recently Relevant to Health Maintenance Results * [employer] THIN PREP PAP SCREEN IMAGED (06/25/2024 10:09 AM CDT) Case Report Gynecologic Cytology Report Case: [id number] Authorizing Provider: Magalys Sepulveda PA-C Collected: 06/25/2024 1009 Ordering Location: [facility] Received: 06/29/2024 1512 First Screen: Chris Coleman Specimen: [employer] ThinPrep Vial Screening, Cervical 07/03/2024 2:04 PM CDT [facility] INTERPRETATION/ RESULT NEGATIVE FOR INTRAEPITHELIAL LESION OR MALIGNANCY (NIL) (none) 07/03/2024 2:04 PM CDT [facility] at 1404 CDT SPECIMEN ADEQUACY Satisfactory for evaluation No endocervical component seen 07/03/2024 2:04 PM CDT [facility] HPV REQUEST HPV and PAP 07/03/2024 2:04 PM CDT [facility] Date of LMP 06/14/2024 07/03/2024 2:04 PM CDT [facility] Last Pap Date 12/13/2020 07/03/2024 2:04 PM CDT [facility] Last Pap Result NIL 2:04 PM CDT [facility] Abnormal Pap or Clifford Bx in last 5 years No 07/03/2024 2:04 PM CDT [facility] Menstrual Status Hormonally Suppressed 07/03/2024 2:04 PM CDT [facility] Clifford Bx Done Today No 07/03/2024 2:04 PM CDT [facility] Additional Information 07/03/2024 2:04 PM CDT [facility] Comment: Interpreted at [facility] [place] [facility] - [address] [facility] [address], [place] [address] Automated Review Successful 07/03/2024 2:04 PM T [facility] Comment:Specimen processed s uccessfully by automated normalizer device, ThinPrep Imaging System, [employer] ANCILLARY TESTING [employer]GER HPV Ordered, Please see separate report 07/03/2024 2:04 PM CDT [facility] Note The pap test is a [...] and malignant lesions. 07/03/2024 2:04 PM CDT [facility] Other (Cervical) 06/25/2024 10:09 AM CDT 06/29/2024 3:12 PM CDT us March L Derick BANSAL PATHOLOGY/CYTOLOGY Final R esult [facility] [address] [place] [address], [place] * HIV EXTERNAL (10/11/2022) EXTERNAL HIV Negative [facility] Blood BLOOD SPECIMEN / Unknown us Evita Allan [facility] Final Resul t [facility] [address] [place] [address], [place] from Last 3 Months or Most Recently Relevant to Health Maintenance Insurance [facility] [place] [id number] [id number] Advance Directives * Full Code (Latest Code [...] Code Status Discussion: Reviewed Preferences Care Teams Long Term Care Phlebotomist Relationship Specialty Start Date End Date Pcp, No . PCP - General 05/06/23
--- OUTSIDE RECORDS SUMMARY | 2025-03-17 13:05 | XMS_ITS | Clinical Summary ---
Author Organization [facility] Address [address] [place] [address] Care Team Providers Care Poultry Grader Name Role Phone None Reported, Pcp Primary Care Provider Unavail able Source Comments Patient records contain information from all sites at [facility]. For routine questions regarding patient records, call [phone] during business hours, M-F 8:00 AM - 5:00 PM Central Time. Record requests for emergency care only can be directed to [phone] at any time.[facility] Allergies Active Allergy Reactions Criticality Noted Date [...] itch, watery eyes, stuffy nose, sneezing Medications [id number]-[id number]- FA (VINATE ONE) 60 mg iron-1 mg [...] Take 50 mg by mouth. 02/12/2022 Active qmpacli-Xq-pkvj- FA 27 mg iron- 1 mg tabletIndication [...] 1st/2nd trimester education completed Pre-reg completed at [facility]. LMP: 08/19/22 EDC:05/26/2023 provider:Evita ALMANZAR involved:, Loc [...] (10/11/2022): She is considering transferring care to [place] given that she now works in [place] Will call regarding cell free DNA versus [...] abnormal quad and missing views, referred to [place] for level 2 ultrasound MFM: Level 2 [...] How often do you attend chur or restorationist services? 1 to 4 times per year 10/08/2022 Do you belong to any clubs o r organizations such as bahai groups, unions, fraternal or athletic groups, or [...] Answer Date Recorded PHQ-2 Score 0 09/26/2022 [facility] [place] of Occupat ional Health - Occupational Stress [...] place to sleep or slept in a jail (including now)? No 10/08/2022 Depression Answer Date [...] Sex Assigned at Female 10/13/2018 9:32 AM TALENT MANAGEMENT SPECIALIST Legal Sex Female 4:15 AM TALENT MANAGEMENT SPECIALIST Gender Identity Female 10/13/2018 9:32 AM TALENT MANAGEMENT SPECIALIST Sexual Orientation Straight 10/13/2018 9: 32 AM TALENT MANAGEMENT SPECIALIST Occupation Industry Job Start Date Job End Date [employer] Not on file Not on file Not on file Last Filed Vital Signs Vital Sign Reading Time Taken Comments Blood Pressure 106/70 10/11/2022 2:46 PM TALENT MANAGEMENT SPECIALIST Pulse 72 04/02/2022 3:40 PM CDT Temperature 36 C (96.8 F) 04/02/2022 3:40 PM CDT Respiratory Rate 16 04/02/2022 3:40 PM CDT Oxygen Saturation 98% 10/02/2021 9:00 AM CDT Inhaled Oxygen Concentration - - Weight 62.9 kg (138 lb 10.7 oz) 10/11/2022 2:46 PM TALENT MANAGEMENT SPECIALIST Height 152 cm (4' 11.84) 10/11/2022 2:47 PM TALENT MANAGEMENT SPECIALIST Body Mass Index 27.23 10/11/2022 2:46 PM TALENT MANAGEMENT SPECIALIST Plan of Treatment Health Maintenance Due Date [...] Type Associated Problems Recent Progress Patient-Stated? Author [facility] Care Plan for Obstetrics COVID-19 Care Plan [facility] Care Plan for Obstetrics COVID-19 Sarahi James M.D. Procedures Procedure Name Priority Date/Time Associated Diagnosis Comments HCV AB SCRN W/REFLEX TO HCV PCR, S Routine 10/11/2022 3:45 PM TALENT MANAGEMENT SPECIALIST Examination Test With Positive Result (HCC) HIV-1/-2 AG AND AB SCRN, PLASMA Routine 10/11/2022 3:45 PM TALENT MANAGEMENT SPECIALIST Examination Test With Positive Result (HCC) HEPATITIS B SURFACE ANTIGEN Routine 10/11/2022 3:45 PM TALENT MANAGEMENT SPECIALIST Examination Test With Positive Result (HCC) CHLAMYDIA/GONORRHOE AE AMPLIFIED RNA Routine 10/11/2022 3:25 PM TALENT MANAGEMENT SPECIALIST Examination Test With Positive Result (HCC) THINPREP SCREEN HPV REFLEX Routine 12/13/2020 4:34 PM TALENT MANAGEMENT SPECIALIST Pap Smear Examination from Last 3 Months or Most Recently Relevant to Health Maintenance Results * HIV-1/-2 Ag and Ab Scrn, Plasma (10/11/2022 3:45 PM TALENT MANAGEMENT SPECIALIST) HIV-1/-2 Ag and Ab Scrn, P Negative Negative 10/12/2022 9:59 AM TALENT MANAGEMENT SPECIALIST [facility] Comment: Negative result does not rule out HIV infection. If exposure to HIV infection occurred <14 days ago, contact the laboratory to request addition of HIV-1 RNA detection / quantification test (HIVQN). Blood (Blood, Venous) 10/11/2022 3:45 PM TALENT MANAGEMENT SPECIALIST 10/12/2022 7:12 AM TALENT MANAGEMENT SPECIALIST us Alok Fischer M.D. LAB MICROBIOLOGY - BLOOD ORD ERABLES Final Result [facility] [address] [place] [address] [facility] [address] [place] [address] * HCV Ab Scrn w/Reflex to HCV PCR, Serum (10/11/2022 3:45 PM TALENT MANAGEMENT SPECIALIST) Pathologist [facility] HCV Ab Screen, S Negative Negative 10/12/2022 8:12 AM TALENT MANAGEMENT SPECIALIST [facility] Comment:Wkmdth-lq-hxxiid rat io is <1.00. Blood (Blood, Venous) 10/11/2022 3:45 PM TALENT MANAGEMENT SPECIALIST 10/12/2022 7:12 AM TALENT MANAGEMENT SPECIALIST us Alok Fischer M.D. LAB MICROBIOLOGY - BLOOD ORD ERABLES Final Result Performing Organization Address [facility] Co de Phone Number [facility] [address] [place] [address] [facility] [address] [place] [address] * Hepatitis B Surface Antigen (10/11/2022 3:45 PM TALENT MANAGEMENT SPECIALIST) Pathologist [facility] HBs Antigen, S Nonreactive Nonreactive 10/11/2022 10:27 PM TALENT MANAGEMENT SPECIALIST AUS Blood (Blood, Venous) 10/11/2022 3:45 PM TALENT MANAGEMENT SPECIALIST 10/11/2022 9:55 PM TALENT MANAGEMENT SPECIALIST us Alok Fischer M.D. LAB MICROBIOLOGY - BLOOD ORD ERABLES Final Result Performing Organization Address City/[facility]/ZIP Co de Phone Number [facility] [address] [place] [address], [place] [facility] [address] [place] [address] * Chlamydia / Gonorrhoeae Amplified RNA (10/11/2022 3:25 PM TALENT MANAGEMENT SPECIALIST) Source Swab, Vagina 10/12/2022 12:54 AM TALENT MANAGEMENT SPECIALIST [facility] Chlamydia trachomatis amplified RNA Negative Negative 10/12/2022 12:54 AM TALENT MANAGEMENT SPECIALIST [facility] Source Swab, Vagina 10/12/2022 12:54 AM TALENT MANAGEMENT SPECIALIST [facility] Neisseria gonorrhoeae amplified RNA Negative Negative 10/12/2022 12:54 AM TALENT MANAGEMENT SPECIALIST [facility] Swab (Vagina) 10/11/2022 3:2 5 PM TALENT MANAGEMENT SPECIALIST 10/11/2022 7:14 PM TALENT MANAGEMENT SPECIALIST us Alok Fischer M.D. LAB MICROBIOLOGY - GENERAL O RDERABLES Final Result [facility] [address] [place] [address], [facility] [place] [address] [place] [address] * ThinPrep Screen HPV Reflex (12/13/2020 4:34 PM TALENT MANAGEMENT SPECIALIST) 12/22/2020 1:52 PM TALENT MANAGEMENT SPECIALIST [facility] Report electronically signed by Nicolette Floyd MD I verify that I have examined all relevant slides/materials for the specimen(s) and rendered or confirmed the diagnosis. 12/22/2020 1:52 PM TALENT MANAGEMENT SPECIALIST [facility] Gross Description Received specimen in a ThinPrep vial. 12/22/2020 1:52 PM TALENT MANAGEMENT SPECIALIST [facility] Pap Test Source Cervical/Endocervi berta 12/22/2020 1:52 PM TALENT MANAGEMENT SPECIALIST [facility] Clinical History well woman 12/22/19 1:52 PM TALENT MANAGEMENT SPECIALIST [facility] Menstrual Status(LMP, PM, ) LMP Nov 25, 2019 12/22/2020 1:52 PM TALENT MANAGEMENT SPECIALIST [facility] Hormone Therapy/Contracep tives None/Not known 12/22/2020 1:52 PM TALENT MANAGEMENT SPECIALIST [facility] Interpretation Cervical/Endocervi berta (ThinPrep): Satisfactory for Evaluation Negative for Intraepithelial Lesion or Malignancy Reactive cellular changes associated with: Reparative or inflammatory changes 12/22/2020 1:52 PM TALENT MANAGEMENT SPECIALIST [facility] Varies (Cervix/Endocerv ix) 12/13/2020 4:34 PM TALENT MANAGEMENT SPECIALIST 12/14/2020 7:11 AM TALENT MANAGEMENT SPECIALIST us Hiwot Shepard APRN, C.N.P., R.N. LAB PAP PATHDX ORDERABLES Final Result [facility] [address] [place] [address], [place] [facility] [address] [place] [address] from Last 3 Months or Most Recently Relevant to Health Maintenance Additional Health Concerns Active Problems Noted Date Diagnosed Date [facility] Care Plan for Obstetrics COVID-19 Insurance [facility] CARE Care Teams Poultry Grader Relationship Specialty Start Date End Date None Reported, Pcp PCP - General Family Medicine 01/30/24
[2025-03-17 13:14] LABS: RBC Urine 0-2 (0-2); Squamous Epithelial Cell Urine Few (None-Few); WBC Urine 0-2 (0-5)
[2025-03-17 13:39] VITALS: BP 122/66; PULSE 86; RESP 16; O2SAT 98
== END 2025-03-17 13:41 | disposition home or self-care (01) ==
PROVIDERS: Emergency Provider Family Medicine
DX: O46.8X1 Other antepartum hemorrhage, first trimester (principal); R10.2 Pelvic and perineal pain; Z3A.01 Less than 8 weeks gestation of pregnancy
CPT/HCPCS: 76817; 81001; 99284

== ENCOUNTER 2025-04-08 11:29 | Outpatient (CLI) | payer MEDICAID, SELFPAY ==
--- NOTE | 2025-04-08 11:30 | CRLHL7_ITS ---
For Patients: As a result of the Cures Act, medical imaging exams and procedure reports are released immediately into your electronic medical record. You may view this report before your referring provider. If you have questions, please contact your health care provider. OB ULTRASOUND FIRST TRIMESTER, TRANSVAGINAL INDICATION: Dating and viability. TECHNIQUE: Real time dixon scale imaging of the fetus was performed. Transvaginal imaging performed. LMP: 02/05/2025. CHIDI by LMP: 11/02/2025. GA: 8 w, 6 d. Previous US: No. CRL: 2.1 cm. 8 w 5 d. CHIDI: 11/13/2025. FHR: 173 BPM. Gestational sac: 3.9 cm. Appears within normal limits. Yolk sac: 3.6 mm. Appears within normal limits. Right ovary: 3.3 x 2.7 x 2.3 cm. CL. Left ovary: 2.6 x 2.0 x 2.2 cm. IMPRESSION: 1. Single living intrauterine measuring 8 weeks 5 days and sonographic due date 11/13/2025. 2. There are two subchorionic hemorrhages measuring 2.6 x 0.6 x 0.9 cm and 1.9 x 0.9 x 1.0 cm. Tong Harris M.D. Diagnostic Radiologist [email or web address] SP/Dictated by: Tong Harris MD @ 04/08/2025 1:42:00 PM (Electronically Signed)
== END 2025-04-08 11:30 | disposition home or self-care (01) ==
LOC: US 11:31
PROVIDERS: Visit Provider Advanced Practice Midwife
DX: Z34.91 Encounter for supervision of normal pregnancy, unspecified, first trimester (principal); O20.9 Hemorrhage in early pregnancy, unspecified; Z3A.08 8 weeks gestation of pregnancy
CPT/HCPCS: 76817; 83021; 86592; 86703; 86704; 86706; 86762; 86787; 86803; 86850; 86900; 86901; 87086; 87340

== ENCOUNTER 2025-08-12 09:59 | Outpatient (CLI) | payer MEDICAID, SELFPAY ==
--- NOTE | 2025-08-12 10:15 | CRLHL7_ITS ---
For Patients: As a result of the Century Cures Act, medical imaging exams and procedure reports are released immediately into your electronic medical record. You may view this report before your referring provider. If you have questions, please contact your health care provider. OB ULTRASOUND GREATER THAN 14 WEEKS, 08/12/2025 CLINICAL HISTORY: Supervision of normal . COMPARISON: None. TECHNIQUE: Real time dixon scale imaging of the fetus was performed. Transabdominal imaging performed. FINDINGS: LMP: 02/05/2025. CHIDI by LMP: 11/12/2025. GA: 26 weeks 6 days. Position: Vertex. Cervix: Visualized. Technique: TA. Length of closed cervix: 4.6 cm. Placenta/Cord: Placenta Position: Posterior. Technique: TA. Placenta tip to internal OS: 6.9 cm. Umbilical Cord: 3 vessel cord. Placenta Insertion: Central. Amniotic Fluid: 4.9 cm SDP. OBSERVED STRUCTURES: Calvarium/Spine Cerebellum: 3.2 cm, 29 weeks 2 days Cisterna Magna: 2.5 mm Lateral ventricles: 3.2 mm CSP Choroid plexus Midline falx Spine Abdomen Stomach Abd Cord Insert Urinary bladder Kidneys Diaphragm Face Nose/Lips Orbital view Profile Limbs Upper extremities Lower extremities Hands Feet Vascular 4 Ch heart LVOT RVOT 3VV 3VTV BIOMETRY BPD: 6.7 cm, 27 weeks 0 days. 45% HC: 25.2 cm, 27 weeks 2 days. 37% AC: 23.2 cm, 27 weeks 4 days. 64% FL: 4.9 cm, 26 weeks 4 days. 27% FL/AC: 21.18% HC/AC Ratio: 1.08. Heart Rate: 149 bpm. Age by this US: 27 weeks 4 days. CHIDI by this US: 11/07/2025. EFW: 1036 grams, 2 lb 5 oz. Percentile by CHIDI: 51% IMPRESSION: 1. Sonographic gestational age 27 weeks 4 days and sonographic due date 11/07/2025. Sonographic age is 5 days ahead of the clinical age. 2. Estimated weight 51st percentile. Abdominal circumference 64th percentile. 3. Given limitations of gestational age, the anatomic survey is normal. Tong Harris M.D. Diagnostic Radiologist [email or web address] Transcribed: 12:46 pm DW/Dictated by: Tong Harris MD @ 08/12/2025 12:15:00 PM (Electronically Signed)
== END 2025-08-12 10:00 | disposition home or self-care (01) ==
LOC: US 09:59
PROVIDERS: Visit Provider Obstetrics & Gynecology
DX: Z34.92 Encounter for supervision of normal pregnancy, unspecified, second trimester (principal); Z3A.27 27 weeks gestation of pregnancy
CPT/HCPCS: 76805

== ENCOUNTER 2025-08-19 10:22 | Outpatient (CLI) | payer MEDICAID, SELFPAY | END 2025-08-19 10:23 | disposition home or self-care (01) | LOC: NFLDREF 08-25 10:47 | PROVIDERS: Visit Provider Obstetrics & Gynecology | DX: Z34.92 Encounter for supervision of normal pregnancy, unspecified, second trimester (principal) | CPT/HCPCS: 86592 ==

== ENCOUNTER 2025-09-10 11:49 | Outpatient (CLI) | payer MEDICAID, SELFPAY ==
[2025-09-10 12:50] LABS: PCR FLU A Negative PCR FLU A (Negative); PCR FLU B Negative PCR FLU B (Negative); SARS PCR* Negative SARS-CoV-2 (Negative)
== END 2025-09-10 11:50 | disposition home or self-care (01) ==
PROVIDERS: Visit Provider Physician Assistant Surgical
DX: R52 Pain, unspecified (principal)
CPT/HCPCS: 87636

== ENCOUNTER 2025-09-30 13:57 | Outpatient (CLI) | payer MEDICAID, SELFPAY | END 2025-09-30 13:58 | disposition home or self-care (01) | LOC: NFLDREF 10-01 14:43 | PROVIDERS: Visit Provider Obstetrics & Gynecology | DX: Z34.93 Encounter for supervision of normal pregnancy, unspecified, third trimester (principal) | CPT/HCPCS: 82728 ==

== ENCOUNTER 2025-09-30 13:59 | Outpatient (CLI) | payer MEDICAID, SELFPAY ==
--- NOTE | 2025-09-30 14:00 | CRLHL7_ITS ---
For Patients: As a result of the Century Cures Act, medical imaging exams and procedure reports are released immediately into your electronic medical record. You may view this report before your referring provider. If you have questions, please contact your health care provider. INDICATION: Gestational diabetes mellitus. COMPARISON: OB ultrasound 08/12/2025. TECHNIQUE: Ultrasound OB pelvis transabdominal. Real time grayscale imaging of the fetus was performed without non-stress testing. FINDINGS: Sonographic imaging demonstrates a single living intrauterine gestation. The fetus has a regular cardiac rate of 138 beats per minute. The fetus has a cephalic orientation. The placenta lies posteriorly. Single deepest pocket measures 7.4 cm. breathing movements: 0/2 Gross body movements: 2/2 tone: 2/2 Amniotic fluid volume: 2/2 Total: 68 IMPRESSION: Biophysical profile score 6 out of 8. Dictated by Amee Pocne MD @ 10/01/2025 4:31:42 AM (Electronically Signed)
== END 2025-09-30 14:00 | disposition home or self-care (01) ==
LOC: US 13:59
PROVIDERS: Visit Provider Obstetrics & Gynecology
DX: O24.419 Gestational diabetes mellitus in pregnancy, unspecified control (principal)
CPT/HCPCS: 76819

== ENCOUNTER 2025-10-04 07:20 | Outpatient (CLI) | payer MEDICAID, SELFPAY ==
--- NOTE | 2025-10-04 07:15 | CRLHL7_ITS ---
For Patients: As a result of the Century Cures Act, medical imaging exams and procedure reports are released immediately into your electronic medical record. You may view this report before your referring provider. If you have questions, please contact your health care provider. OB ULTRASOUND BIOPHYSICAL PROFILE CLINICAL HISTORY: GDMA2. TECHNIQUE: Real time dixon scale imaging of the fetus was performed. Transabdominal imaging performed. COMPARISON: 09/30/2025, 08/12/2025, 04/08/2025. FINDINGS: LMP: 02/05/2025. CHIDI by LMP: 11/12/2025. GA: 34 weeks 3 days. Cervix: Not visualized. Positioning: Vertex. Amniotic Fluid: 22.1 cm KIMBERLEE. 8.5 cm SDP. BIOPHYSICAL PROFILE Gross Body Movements: 2 Tone: 2 Respiratory Activity: 2 Amniotic Fluid SDP: 2 Total Score: 8 Placenta: Technique: TA. Placenta Position: Posterior, right wall. Dopplers: Heart Rate: 147 bpm. IMPRESSION: 1. Normal biophysical profile score of 8/8. 2. Amniotic fluid single deepest pocket 8.5 cm. KIMBERLEE 22.1 cm. Tong Harris M.D. Diagnostic Radiologist [email or web address] Transcribed: 10:33 am DW/Dictated by: Tong Harrsi MD @ 10/04/2025 9:58:00 AM (Electronically Signed)
== END 2025-10-04 07:21 | disposition home or self-care (01) ==
PROVIDERS: PCP Internal Medicine; Visit Provider Obstetrics & Gynecology
DX: O24.419 Gestational diabetes mellitus in pregnancy, unspecified control (principal); Z3A.34 34 weeks gestation of pregnancy
CPT/HCPCS: 76819

== ENCOUNTER 2025-10-11 07:10 | Outpatient (CLI) | payer MEDICAID, SELFPAY ==
--- NOTE | 2025-10-11 07:15 | CRLHL7_ITS ---
For Patients: As a result of the Century Cures Act, medical imaging exams and procedure reports are released immediately into your electronic medical record. You may view this report before your referring provider. If you have questions, please contact your health care provider. OB ULTRASOUND BIOPHYSICAL PROFILE CLINICAL HISTORY: GDMA2. TECHNIQUE: Real time dixon scale imaging of the fetus was performed. Transabdominal imaging performed. COMPARISON: 10/04/2025, 09/30/2025, 09/24/2025. FINDINGS: CHIDI by LMP: 11/12/2025. GA: 35 weeks 3 days. Gestation: Single. Cervix: Not visualized. Positioning: Vertex. Amniotic Fluid: 22.1 cm KIMBERLEE. 9.9 cm SDP. BIOPHYSICAL PROFILE Gross Body Movements: 2 Tone: 2 Respiratory Activity: 2 Amniotic Fluid: 2 Total Score: 8 Placenta: Technique: TA. Placenta Position: Posterior. Dopplers: Heart Rate: 159 bpm. IMPRESSION: 1. Biophysical profile score 8/8. 2. Amniotic fluid single deepest pocket 9.9 cm. KIMBERLEE 22.1 cm. Tong Harris M.D. Diagnostic Radiologist [email or web address] Transcribed: 9:19 am DW/Dictated by: Tong Harris MD @ 10/11/2025 8:42:00 AM (Electronically Signed)
== END 2025-10-11 07:11 | disposition home or self-care (01) ==
PROVIDERS: PCP Internal Medicine; Visit Provider Obstetrics & Gynecology
DX: O24.419 Gestational diabetes mellitus in pregnancy, unspecified control (principal); Z3A.35 35 weeks gestation of pregnancy
CPT/HCPCS: 76819

== ENCOUNTER 2025-10-18 07:16 | Outpatient (CLI) | payer MEDICAID, SELFPAY ==
--- NOTE | 2025-10-18 07:15 | CRLHL7_ITS ---
For Patients: As a result of the Century Cures Act, medical imaging exams and procedure reports are released immediately into your electronic medical record. You may view this report before your referring provider. If you have questions, please contact your health care provider. INDICATION: GDM A2. (Sic) COMPARISON: None available. TECHNIQUE: Grayscale pelvic ultrasound via a transabdominal approach. FINDINGS: number: 1 Position: Cephalic. Placental Position: Posterior/fundal. Amniotic fluid: DVP 8.5cm. heart rate: 145bpm. BPD: 8.9cm; 35 weeks and 6 days. Percentile:45% HC: 32.7cm; 37 weeks and 1 day. Percentile:39% AC: 35.5cm; 39 weeks and 3 days. Percentile:<97% FL: 6.9cm; 35 weeks and 1 day. Percentile:17% US EGA: 36 weeks and 6 days US CHIDI: 11/09/2025 Established CHIDI: 11/12/2025 EFW: 3307gm, +/-496gm, corresponding to the 86th percentile for the established CHIDI. BPP Score: Fluid: 2 Breathin Movement: 2 Tone: 2 Total: 8 Uterus: No significant uterine findings. Right ovary: Normal. Left ovary: Normal. IMPRESSION: 1. Normal BPP score (8/8). 2. biometry corresponds to an EFW at the 86 percentile for previously established gestational age with an abdominal circumference greater than the 97th percentile. 3. Nonspecific borderline polyhydramnios with a deepest vertical pocket of amniotic fluid measuring 8.5 cm Dictated by Salvador James MD @ 10/18/2025 8:35:23 AM (Electronically Signed)
== END 2025-10-18 07:17 | disposition home or self-care (01) ==
LOC: US 07:17
PROVIDERS: PCP Internal Medicine; Visit Provider Obstetrics & Gynecology
DX: O24.419 Gestational diabetes mellitus in pregnancy, unspecified control (principal); Z3A.36 36 weeks gestation of pregnancy
CPT/HCPCS: 76816; 76819

== ENCOUNTER 2025-10-25 07:06 | Outpatient (CLI) | payer MEDICAID, SELFPAY ==
--- NOTE | 2025-10-25 07:15 | CRLHL7_ITS ---
For Patients: As a result of the Century Cures Act, medical imaging exams and procedure reports are released immediately into your electronic medical record. You may view this report before your referring provider. If you have questions, please contact your health care provider. INDICATION: Gestational diabetes TECHNIQUE: Ultrasound OB pelvis transabdominal. Real-time dixon-scale imaging of the fetus was performed. COMPARISON: Ob ultrasound 10/18/2025 FINDINGS: Gestation: Single Presentation: Cephalic Placenta location: Posterior heart rate: 155 bpm Cervix: Not visualized Amniotic fluid volume single deepest pocket 8.2 cm, 2/2. motion 2/2. tone 2/2. breathing movements 2/2. IMPRESSION: Single live intrauterine gestation with a biophysical profile 07/09 at 37 weeks, 3 days. CHIDI of 11/25/2025. Similar polyhydramnios with single deepest pocket of amniotic fluid measuring 8.2 cm Dictated by Suzan Parry MD @ 10/25/2025 9:14:59 AM (Electronically Signed)
== END 2025-10-25 07:07 | disposition home or self-care (01) ==
LOC: US 07:07
PROVIDERS: PCP Internal Medicine; Visit Provider Obstetrics & Gynecology
DX: O24.419 Gestational diabetes mellitus in pregnancy, unspecified control (principal); O40.3XX0 Polyhydramnios, third trimester, not applicable or unspecified; Z3A.37 37 weeks gestation of pregnancy
CPT/HCPCS: 76819